=== PATIENT | female | born 1985 | race Caucasian/White ===

== ENCOUNTER 2019-01-31 11:06 | Emergency (ER) | payer SELFPAY ==
[2019-01-31 11:50] LABS: Absolute Lymphocytes (CBC) 2.5 K/uL (0.7-4.9); Absolute Monocytes 0.5 K/uL (0.1-1.3); Absolute Neutrophil 5.5 K/uL (1.8-8.0); Basophils % 0.8 % (0-1.3); Eosinophils % 4.3 % (0-4.4); Hematocrit 37.9 % (36.0-45.0); Lymphocytes % 28.1 % (15.3-44.8); MPV 7.6 fL (7.6-11.3); Monocytes % 5.2 % (3.3-12.3)
[2019-01-31] MEDS ORDERED: NA CHLORIDE 0.9% 1,000 ML ONE (11:52)
[2019-01-31 12:03] LABS: BUN Blood Urea Nitrogen 5 mg/dL (7-18); Bicarbonate 30 mmol/L (21-32); Glucose Level 97 mg/dL (74-106); Potassium 4.1 mmol/L (3.5-5.1); Sodium Level 142 mmol/L (136-145)
[2019-01-31 12:07] LABS: Urine Bacteria <20 /HPF (<20); Urine Culture Reflex Order NOT NEEDED; Urine RBC <5 /HPF (NONE SEEN)
--- NOTE | 2019-01-31 12:40 | RAD REPORT ---
EXAM DESCRIPTION: CT - Stone Protocol - 01/31/2019 12:24 pm CLINICAL HISTORY: Abdominal pain. Lower abdominal pain. Urinary frequency COMPARISON: None. TECHNIQUE: Computed axial tomography of the abdomen pelvis was obtained without oral or IV contrast. Lack of IV and oral contrast limits evaluation of solid organs, bowel, and vessels. Coronal reformat ari images were obtained and reviewed. All CT scans are performed using dose optimization technique as appropriate and may include automated exposure control or mA/KV adjustment according to patient size. FINDINGS: 8 millimeter left renal calculus Hounsfield unit 1667. No hydronephrosis. A right renal ca lculus is not seen. A ureteral calculus is not noted. A bladder calculus is not present. The liver, spleen, pancreas and adrenals appear grossly normal The gallbladder has been removed. Small umbilical hernia contains fat There is no evidence of diverticulitis. The appendix appears normal IMPRESSION: 8 millimeter nonobstructing left renal calculus
--- NOTE | 2019-01-31 13:02 | EDPHYS ---
Physician Documentation [facility] Name: Etelvina Whelan Age: 33 yrs Sex: Female : 1985 Arrival Date: 01/31/2019 Time: 11:07 Bed 13 Private MD: ED Physician Bernardo Mora HPI: 01/31 11:45 This 33 yrs old Female presents to ER via Ambulatory with complaints of kb Abdominal Pain. 11:45 The patient complains of pain in the left flank. The pain does not radiate. Onset: The kb symptoms/episode began/occurred 2 week(s) ago. Modifying factors: The symptoms are alleviated by nothing. the symptoms are aggravated by palpation/percussion. Associated signs and symptoms: Pertinent positives: dysuria, Pertinent negatives: diarrhea, dizziness, fever, urinary frequency, headache, hematuria, nausea, pain radiating to the lower extremities, vomiting. Severity of pain: At its worst the pain was moderate in the emergency department the pain is unchanged. The patient has not experienced similar symptoms in the past. The patient has been recently seen by a physician: the patient's primary care provider, 1 week(s) ago, with similar presenting complaints, and apparently given a diagnosis of UTI, lab tests were done. 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 - Social history:: Smoking status: Patient/guardian denies using tobacco. - Ebola Screening: : No symptoms or risks identified at this time. ROS: 11:43 Constitutional: Negative for fever, chills, and weight loss, Cardiovascular: Negative kb for chest pain, palpitations, and edema, Respiratory: Negative for shortness of breath, cough, wheezing, and pleuritic chest pain, Abdomen/GI: Negative for abdominal pain, nausea, vomiting, diarrhea, and constipation, Back: Negative for injury and pain, MS/Extremity: Negative for injury and deformity, Skin: Negative for injury, rash, and discoloration, Neuro: Negative for headache, weakness, numbness, tingling, and seizure. 11:43 : Positive for urinary symptoms, flank pain, burning with urination. Exam: 11:43 Constitutional: This is a well developed, well nourished patient who is awake, alert, kb and in no acute distress. Head/Face: Normocephalic, atraumatic. Chest/axilla: Normal chest wall appearance and motion. Nontender with no deformity. No lesions are appreciated. Cardiovascular: Regular rate and rhythm with a normal S1 and S2. No gallops, murmurs, or rubs. Normal PMI, no JVD. No pulse deficits. Respiratory: Lungs have equal breath sounds bilaterally, clear to auscultation and percussion. No rales, rhonchi or wheezes noted. No increased work of breathing, no retractions or nasal flaring. Abdomen/GI: Soft, non-tender, with normal bowel sounds. No distension or tympany. No guarding or rebound. No evidence of tenderness throughout. Skin: Warm, dry with normal turgor. Normal color with no rashes, no lesions, and no evidence of cellulitis. MS/ Extremity: Pulses equal, no cyanosis. Neurovascular intact. Full, normal range of motion. Neuro: Awake and alert, GCS 15, oriented to person, place, time, and situation. Cranial nerves II-XII grossly intact. Motor strength 5/5 in all extremities. Sensory grossly intact. Cerebellar exam normal. Normal gait. 11:43 Back: CVA tenderness, that is moderate, is noted on the left. Vital Signs: 11:19 BP 118 / 81; Pulse 86; Resp 16; Temp 98; Pulse Ox 100% on R/A; Pain 8/10; hb 12:19 BP 104 / 63; Pulse 80; Resp 17; Temp 98.4(O); Pulse Ox 98% on R/A; mh5 13:19 BP 105 / 62; Pulse 87; Resp 15; Pulse Ox 99% on R/A; rb1 MDM: 11:15 Patient medically screened. kb 11:44 Data reviewed: vital signs, nurses notes. Data interpreted: Pulse oximetry: on room air kb is 100 %. Interpretation: normal. 13:01 Counseling: I had a detailed discussion with the patient and/or guardian regarding: the kb historical points, exam findings, and any diagnostic results supporting the discharge/admit diagnosis, lab results, radiology results, the need for outpatient follow up, a family practitioner, a urologist, to return to the emergency department if symptoms worsen or persist or if there are any questions or concerns that arise at home. 01/31 11:23 Order name: Basic Metabolic Panel; Complete Time: 12:06 kb 01/31 11:23 Order name: CBC with Diff; Complete Time: 11:53 kb 01/31 11:23 Order name: Urine Microscopic Only; Complete Time: 12:09 kb 01/31 11:38 Order name: Urine Dipstick--Ancillary (enter results) eb 01/31 11:38 Order name: Urine --Ancillary (enter results) eb 01/31 12:07 Order name: CT Stone Protocol; Complete Time: 12:41 kb 01/31 11:23 Order name: IV Saline Lock; Complete Time: 12:29 kb 01/31 11:23 Order name: Labs collected and sent; Complete Time: 12:29 kb Administered Medications: 11:47 Drug: NS 0.9% 1000 ml Route: IV; Rate: 1000 ml; Site: right antecubital; rb1 13:32 Follow up: IV Status: Completed infusion rb1 13:01 Drug: TORadol 30 mg Route: IVP; Site: right antecubital; rb1 13:31 Follow up: Response: No adverse reaction; Pain is decreased rb1 Disposition: 14:30 Co-signature as Attending Physician, Bernardo Mora MD I agree with the assessment and kdr plan of care. Disposition: 01/31/19 13:01 Discharged to Home. Impression: Calculus of kidney. - Condition is Stable. - Discharge Instructions: Kidney Stones, [id number]. - Prescriptions for Diclofenac Sodium 75 mg Oral Tablet, Delayed Release (E.C.) - take 1 tablet by ORAL route 2 times per day As needed; 30 tablet. - Medication Reconciliation Form, Thank You Letter, Antibiotic Education, Prescription Opioid Use form. - Follow up: Emergency Department; When: As needed; Reason: Worsening of condition. Follow up: Private Physician; When: 2 - 3 days; Reason: Recheck today's complaints, Continuance of care, Re-evaluation by your physician. Follow up: Storm Wheat MD; When: 2 - 3 days; Reason: Recheck today's complaints. Signatures: Dispatcher [employer] EDTierra Bloom BOAT OUTFITTING SUPERVISOR-C BOAT OUTFITTING SUPERVISOR-Ckb Bernardo Mora MD MD kdr Leticia Escobar, RN RN rb1 Genet Raphael, RN RN Corrections: (The following items were deleted from the chart) 13:33 13:01 01/31/2019 13:01 Discharged to Home. Impression: Calculus of kidney. Condition is rb1 Stable. Forms are Medication Reconciliation Form, Thank You Letter, Antibiotic Education, Prescription Opioid Use. Follow up: Emergency Department; When: As needed; Reason: Worsening of condition. Follow up: Private Physician; When: 2 - 3 days; Reason: Recheck today's complaints, Continuance of care, Re-evaluation by your physician. Follow up: Storm Wheat; When: 2 - 3 days; Reason: Recheck today's complaints. kb
--- NOTE | 2019-01-31 13:02 | ER ---
Nurse's Notes [facility] Name: Etelvina Whelan Age: 33 yrs Sex: Female : 1985 Arrival Date: 01/31/2019 Time: 11:07 Bed 13 Private MD: Diagnosis: Calculus of kidney Presentation: 01/31 11:19 Presenting complaint: Patient states: Left flank pain x 2 weeks. Transition of care: hb patient was not received from another setting of care. Onset of symptoms was January 31, 2019. Risk Assessment: Do you want to hurt yourself or someone else? Patient reports no desire to harm self or others. Care prior to arrival: None. 11:19 Method Of Arrival: Ambulatory hb 11:19 Acuity: KSENIA 3 hb 11:20 Initial Sepsis Screen: Does the patient meet any 2 criteria? No. Patient's initial rb1 sepsis screen is negative. Does the patient have a suspected source of infection? No. Patient's initial sepsis screen is negative. 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 - Social history:: Smoking status: Patient/guardian denies using tobacco. - Ebola Screening: : No symptoms or risks identified at this time. Screenin:20 Abuse screen: Denies threats or abuse. Denies injuries from another. Nutritional hb screening: No deficits noted. Tuberculosis screening: No symptoms or risk factors identified. Fall Risk None identified. Assessment: 11:20 General: Appears in no apparent distress. comfortable, Behavior is calm, cooperative. rb1 General: Denies fever. Pain: Complains of pain in left flank Pain does not radiate. Pain currently is 8 out of 10 on a pain scale. Pain began x 2 weeks. Neuro: Level of Consciousness is awake, alert, obeys commands, Oriented to person, place, time, situation. Cardiovascular: Capillary refill < 3 seconds is brisk in bilateral fingers. Respiratory: Airway is patent Respiratory effort is even, unlabored, Respiratory pattern is regular, symmetrical. GI: Bowel sounds present X 4 quads. Abd is soft. : Reports burning with urination, Currently taking Cefuroxime for the burning. Derm: Skin is pink, warm \T\ dry. 12:20 Reassessment: Patient appears in no apparent distress at this time. No changes from rb1 previously documented assessment. 13:05 Reassessment: Discharge pending due to shot time. rb1 13:31 Reassessment: Patient appears in no apparent distress at this time. Patient and/or rb1 family updated on plan of care and expected duration. Pain level reassessed. Patient is alert, oriented x 3, equal unlabored respirations, skin warm/dry/pink. Vital Signs: 11:19 BP 118 / 81; Pulse 86; Resp 16; Temp 98; Pulse Ox 100% on R/A; Pain 8/10; hb 12:19 BP 104 / 63; Pulse 80; Resp 17; Temp 98.4(O); Pulse Ox 98% on R/A; mh5 13:19 BP 105 / 62; Pulse 87; Resp 15; Pulse Ox 99% on R/A; rb1 ED Course: 11:07 Patient arrived in ED. as 11:10 T[facility] Frey [facility]-C [facility] kb 11:10 Bernardo Mora MD is Attending Physician. kb 11:19 Triage completed. hb 11:20 Arm band placed on. hb 11:20 Patient has correct armband on for positive identification. Bed in low position. Call mh5 light in reach. Side rails up X 1. Adult w/ patient. Warm blanket given. Pulse ox on. NIBP on. 11:23 Leticia Escobar, KHARI is Primary Nurse. rb1 11:25 Inserted saline lock: 22 gauge in right antecubital area, using aseptic technique. rb1 Blood collected. 12:25 CT Stone Protocol In Process Unspecified. EDMS 13:01 Storm Wheat MD is Referral Physician. kb 13:32 No provider procedures requiring assistance completed. IV discontinued, intact, rb1 bleeding controlled, No redness/swelling at site. Pressure dressing applied. Administered Medications: 11:47 Drug: NS 0.9% 1000 ml Route: IV; Rate: 1000 ml; Site: right antecubital; rb1 13:32 Follow up: IV Status: Completed infusion rb1 13:01 Drug: TORadol 30 mg Route: IVP; Site: right antecubital; rb1 13:31 Follow up: Response: No adverse reaction; Pain is decreased rb1 Outcome: 13:01 Discharge ordered by MD. ferrer 13:32 Discharged to home ambulatory, with family. rb1 13:32 Condition: stable 13:32 Discharge instructions given to patient, Instructed on discharge instructions, follow up and referral plans. medication usage, Demonstrated understanding of instructions, follow-up care, medications, Prescriptions given X 1. 13:33 Patient left the ED. rb1 Signatures: Dispatcher [employer] EDMS Tierra Frey, DIRECTOR OF GOLF-C DONAVON-Kym Hair Rebecca, RN RN rb1 Genet Raphael, KHARI RN Denae Amaral [facility]
[2019-01-31] MEDS ORDERED: KETOROLAC 30 MG/ML INJ ONE (13:09)
[2019-01-31 13:45] LABS: Urine Blood TRACE (NEG); Urine Glucose NEGATIVE (NEG); Urine Protein NEGATIVE (NEG)
== END 2019-01-31 13:33 | disposition home or self-care (01) ==
LOC: ER 11:06
DX: N20.0 Calculus of kidney (principal); Z91.012 Allergy to eggs
CPT/HCPCS: 36415; 74176; 76377; 80048; 81003; 81015; 81025; 85025; 96361; 96374; 99284; J7030

== ENCOUNTER 2019-02-05 08:58 | Day surgery (SDC) | payer SELFPAY ==
[2019-02-04 13:44] LABS: Urine Appearance CLEAR; Urine Bilirubin NEGATIVE (NEG); Urine Blood NEGATIVE (NEG); Urine Color YELLOW; Urine Glucose NEGATIVE (NEG); Urine Microscopic Reflex NO UMIC; Urine Protein NEGATIVE (NEG); Urine Specific Gravity 1.015 (1.005-1.030); Urine Urobilinogen 0.2 mg/dL (0.2-1.0)
[2019-02-04 13:48] LABS: Absolute Lymphocytes (CBC) 2.2 K/uL (0.7-4.9); Absolute Monocytes 0.5 K/uL (0.1-1.3); Basophils % 0.6 % (0-1.3); Eosinophils % 2.4 % (0-4.4); Hematocrit 36.8 % (36.0-45.0); Lymphocytes % 21.8 % (15.3-44.8); MPV 7.6 fL (7.6-11.3); Monocytes % 4.9 % (3.3-12.3); RBC Red Blood Cell Count 3.98 M/uL (3.86-4.86)
[2019-02-04 13:54] LABS: Protime INR 1.05
[2019-02-04 13:58] LABS: BUN Blood Urea Nitrogen 11 mg/dL (7-18); Bicarbonate 30 mmol/L (21-32); Glucose Level 92 mg/dL (74-106); Phosphorus 2.7 mg/dL (2.5-4.9); Potassium 4.2 mmol/L (3.5-5.1); Sodium Level 139 mmol/L (136-145)
--- NOTE | 2019-02-04 14:32 | RAD REPORT ---
EXAM DESCRIPTION: Wesley Simental (2 Views)02/04/2019 2:24 pm CLINICAL HISTORY: Preop/abdominal pain COMPARISON: 2016 FINDINGS: The lungs appear clear of acute infiltrate. The heart is normal size IMPRESSION: No acute abnormalities displayed
--- NOTE | 2019-02-04 14:33 | RAD REPORT ---
EXAM DESCRIPTION: RAD - Abdomen 1 View (KUB) - 02/04/2019 2:25 pm CLINICAL HISTORY: N20.0,N20.1,Z01.818. FINDINGS: The bowel gas pattern is unremarkable. 8 millimeter left renal calculus unchanged from the recent CAT scan
[2019-02-05] MEDS ORDERED: GENTAMICIN 80 MG/100 ML BAG 80 MG/100 ML BAG IV ONE (09:39)
[2019-02-05] MEDS ORDERED: Ringers Lactate 1,000 ML IV ONE (09:39)
[2019-02-05] MEDS ORDERED: PROPOFOL 200 MG/20 ML VIAL IV ONE ×2 (11:10→11:23)
[2019-02-05] MEDS ORDERED: FENTANYL CITR 100 MCG/2 ML ONE (11:10)
[2019-02-05] MEDS ORDERED: ONDANSETRON 4 MG/2 ML VIAL ONE (11:10)
[2019-02-05] MEDS ORDERED: LIDOCAINE 1% MPF 5 ML VIAL ONE (11:10)
[2019-02-05] MEDS ORDERED: MIDAZOLAM HCL 2 MG/2 ML INJ ONE (11:10)
[2019-02-05] MEDS ORDERED: MEPERIDINE HCL 50 MG/ML AMP ONE (11:56)
== END 2019-02-05 13:31 | disposition home or self-care (01) ==
LOC: OR 08:58
PROVIDERS: ATTEND Urology
PROC: 0TF4XZZ Fragmentation in Left Kidney Pelvis, External Approach (ICD-10-PCS; principal; 2019-02-05 10:45)
DX: N20.0 Calculus of kidney (principal); F31.9 Bipolar disorder, unspecified; F41.9 Anxiety disorder, unspecified; F17.210 Nicotine dependence, cigarettes, uncomplicated; Z79.899 Other long term (current) drug therapy
CPT/HCPCS: 36415; 50590; 71046; 74018; 80048; 81003; 84100; 84703; 85025; 85610; 85730; 87086; 87088; 93005; J1580; J2175; J2250; J2405; J2704; J3010

== ENCOUNTER 2022-05-31 07:43 | Emergency (ER) | payer SELFPAY ==
--- OUTSIDE RECORDS SUMMARY | 2022-05-31 07:45 | XMS REPORT | Continuity of Care Document ---
:1985 Author Organization [facility] t Address [address] [place] [address] [address] [place] [address] Care Team Providers Name Role Phone Sean GOFF Attending Clinician Unavailable AURY SINGH Attending Clinician Unavailable Vaccine, [facility] Attending Clinician Unavailable Samantha FRIED, Aury Jamil Attending Clinician [phone] Problems This patient has no known problems. Allergies, Adverse Reactions, Alerts Allergy Allergy Status Severity Reaction(s) Onset Inactive Treating Comm ents Source Name Type Date Date Clinician NO KNOWN Drug Active Univers ALLERGIE Class ity of S [facility] Social History Social Habit Start Date Stop Date Quantity Comments Source Exposure to Unable to assess Univers ity of SARS-CoV-2 [facility] [place] Sex Assigned At [birth year] Universit y of 00:00:00 00:00:00 [facility] Smoking Status Start Date Stop Date Source Unknown if ever smoked [facility] Medications This patient has no known medications. Immunizations Ordered Filled Immunization Date Status Comments Sourc e Immunization Name Name SARS-COV-2 COVID-19 2021-05-21 Completed Unive rsity of PFIZER VACCINE 00:00:00 [facility] Procedures Procedure Date / Time Performed Performing Clinician Sourc e SARS-COV-2 COVID-19 2021-05-21 19:12:42 Madeline Singh Unive rsity of [place] VACCINE,0.3ML,IM Aury Omero [facility] (PFIZER) Encounters Start End Encounter Admission Attending Care Care Encounter Source Date/Time Date/Time Type Type Clinicians Facility Department ID 2021-06-11 2021-06-11 Outpatient R [facility] [id number] Univers 09:10:00 09:10:00 [id number] ity of [facility] 2021-06-11 2021-06-11 Outpatient R IRMA [facility] [id number] Univers 09:10:00 09:10:00 cris [facility] 2021-05-21 2021-05-21 Outpatient R SAMANTHA [facility] [id number] [facility] 11:40:00 11:40:00 MADELINE itloree [facility] 2021-05-21 2021-05-21 Imm/Inj Vaccine, [facility] [id number] Univers 11:04:45 11:14:45 Visit Madeline Singh [id number] [id number] [id number] [place] [address] Branch Results This patient has no known results.
[2022-05-31 08:55] LABS: Absolute Lymphocytes (CBC) 2.9 K/uL (0.7-4.9); Hematocrit 38.5 % (36.0-45.0); Lymphocytes % 29.8 % (15.3-44.8); MCV 86.4 fL (80-100); MPV 7.4 fL (7.6-11.3); RBC Red Blood Cell Count 4.46 M/uL (3.86-4.86)
[2022-05-31 09:17] LABS: Albumin 3.8 g/dL (3.4-5.0); Bilirubin Total 0.3 mg/dL (0.2-1.0); Potassium 3.7 mmol/L (3.5-5.1); Protein, Total 7.8 g/dL (6.4-8.2)
--- NOTE | 2022-05-31 09:55 | RAD REPORT ---
EXAM DESCRIPTION: CTAbdomen Pelvis W Contrast - 05/31/2022 9:34 am CLINICAL HISTORY: Abdominal pain. Abdominal pain, acute, nonlocalized, neutropenic COMPARISON: No comparisons TECHNIQUE: Biphasic CT imaging of the abdomen and pelvis was performed with 100 ml non-ionic IV cont rast. All CT scans are performed using dose optimization technique as appropriate and may include automated exposure control or mA/KV adjustment according to patient size. FINDINGS: Trace bilateral pleural effusions.Cholecystectomy clips. The liver, spleen, pancreas, adrenal glands and right kidney are within normal limits. Left renal allen culi are present without hydronephrosis. No bowel obstruction, free air, free fluid or abscess. There is mucosal thickening involving the colo n present probably representing a colitis. No pneumatosis coli. The appendix is normal. No evidence of significant lymphadenopathy. Small fat containing umbilical hernia. No suspicious bony findings. IMPRESSION: There is a colitis pattern present, mild to moderate in severity. This is nonspecific bu t does not appear related to ischemia. Ulcerative colitis or infectious colitis are favored. Left nephrolithiasis without hydronephrosis. Trace bilateral pleural effusions.
--- NOTE | 2022-05-31 10:24 | ER ---
Nurse's Notes [facility] Name: Etelvina Whelan Age: 36 yrs Sex: Female : 1985 Arrival Date: 05/31/2022 Time: 07:45 Bed 22 Private MD: Edwardo Prather E Diagnosis: Acute Colitis Presentation: 05/31 08:20 Chief complaint: Patient states: N/V/D, lower abdominal cramping, blood in stool x 2 jl7 weeks. Coronavirus screen: At this time, the client does not indicate any symptoms associated with coronavirus-19. Ebola Screen: No symptoms or risks identified at this time. Initial Sepsis Screen: Does the patient meet any 2 criteria? No. Patient's initial sepsis screen is negative. Does the patient have a suspected source of infection? No. Patient's initial sepsis screen is negative. Risk Assessment: Do you want to hurt yourself or someone else? Patient reports no desire to harm self or others. Onset of symptoms was May 17, 2022. 08:20 Method Of Arrival: Ambulatory jl7 08:20 Acuity: KSENIA 3 jl7 Triage Assessment: 08:21 General: Appears in no apparent distress. uncomfortable, Behavior is calm, cooperative, jl7 appropriate for age. Pain: Complains of pain in right lower quadrant and left lower quadrant Pain currently is 8 out of 10 on a pain scale. Quality of pain is described as crampy, Pain began x 2 weeks Is continuous. GI: Abdomen is round Stools are reported to be diarrhea. Last BM was May 30, 2022. Reports diarrhea, bloody stool, nausea, vomiting. Derm: Skin is pink, warm \T\ dry. 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 - Social history:: Smoking status: Reported history of juuling and/or vaping. Patient uses street drugs, marijuana. Screenin:15 Abuse screen: Denies threats or abuse. Nutritional screening: No deficits noted. ha1 Tuberculosis screening: No symptoms or risk factors identified. 10:15 Fall Risk None identified. ha1 Vital Signs: 08:20 BP 111 / 72; Pulse 93; Resp 17; Temp 98.1; Pulse Ox 98% on R/A; Weight 85.28 kg; Height jl7 4 ft. 11 in. (149.86 cm); Pain 8/10; 11:35 BP 114 / 75; Pulse 90; Resp 16 S; Pulse Ox 98% on R/A; ha1 08:20 Body Mass Index 37.97 (85.28 kg, 149.86 cm) jl7 ED Course: 07:45 Patient arrived in ED. mr 07:45 Edwardo Prather MD is Private Physician. mr 08:08 [facility]eman [facility]. jr8 08:08 Kedar Scherer MD is Attending Physician. jr8 08:21 Triage completed. jl7 08:21 Arm band placed on right wrist. Patient placed in waiting room, Patient notified of jl7 wait time. 09:35 Abdomen In Process Unspecified. EDMS 10:15 Patient has correct armband on for positive identification. Bed in low position. Call ha1 light in reach. Side rails up X 1. 10:19 Shar Cole, KHARI is Primary Nurse. jl7 10:22 Edwardo Garcia MD is Referral Physician. jr8 11:35 IV discontinued, intact, bleeding controlled, No redness/swelling at site. Pressure ha1 dressing applied. 11:40 No provider procedures requiring assistance completed. ha1 Administered Medications: 10:49 Drug: Cipro (ciprofloxacin) 500 mg Route: PO; em6 11:25 Follow up: Response: No adverse reaction ha1 10:49 Drug: metroNIDAZOLE 500 mg Route: PO; em6 11:25 Follow up: Response: No adverse reaction ha1 10:49 Drug: Ondansetron 4 mg Route: PO; em6 11:25 Follow up: Response: No adverse reaction; Nausea is decreased ha1 10:49 Drug: Dicyclomine 20 mg Route: PO; em6 11:25 Follow up: Response: No adverse reaction; Pain is decreased ha1 Medication: 11:40 VIS not applicable for this client. ha1 Outcome: 10:23 Discharge ordered by MD. stewart 11:40 Discharged to home ambulatory, with significant other. ha1 11:40 Condition: improved 11:40 Discharge instructions given to patient, Instructed on discharge instructions, follow up and referral plans. Demonstrated understanding of instructions, medications, Prescriptions given X 4. 12:03 Patient left the ED. jl7 Signatures: Dispatcher [employer] EDDC Monique Hooker, DIAZ Geiger jr8 Shar Cole RN RN jl7 Frances Tejeda RN RN ha1 Stephie Amaral RN RN em6 Corrections: (The following items were deleted from the chart) 11:50 11:47 Condition: improved ha1 ha1 11:50 11:47 Discharged to home ambulatory, with significant other, ha1 ha1 11:50 11:47 Discharge instructions given to patient, Instructed on discharge instructions, ha1 follow up and referral plans. Demonstrated understanding of instructions, medications, Prescriptions given X 4, ha1
--- NOTE | 2022-05-31 10:24 | EDPHYS ---
Physician Documentation [facility] Name: Etelvina Whelan Age: 36 yrs Sex: Female : 1985 Arrival Date: 05/31/2022 Time: 07:45 Bed 22 Private MD: Edwardo Prather E ED Physician Kedar Scherer HPI: 05/31 08:50 This 36 yrs old Female presents to ER via Ambulatory with complaints of Abdominal Pain, jr8 Vomiting/Diarrhea, Bloody Stools, Weakness. 08:50 The patient presents with abdominal pain in the lower abdomen. Onset: The jr8 symptoms/episode began/occurred gradually, 2 week(s) ago. The symptoms do not radiate. Associated signs and symptoms: Pertinent positives: diarrhea, nausea, hematochezia . The symptoms are described as crampy. Modifying factors: The symptoms are alleviated by nothing, the symptoms are aggravated by nothing. Severity of pain: At its worst the pain was moderate in the emergency department the pain is unchanged. The patient has not experienced similar symptoms in the past. The patient has not recently seen a physician. 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 - Social history:: Smoking status: Reported history of juuling and/or vaping. Patient uses street drugs, marijuana. ROS: 08:50 Eyes: Negative for injury, pain, redness, and discharge, ENT: Negative for injury, jr8 pain, and discharge, Neck: Negative for injury, pain, and swelling, Cardiovascular: Negative for chest pain, palpitations, and edema, Respiratory: Negative for shortness of breath, cough, wheezing, and pleuritic chest pain, Back: Negative for injury and pain, MS/Extremity: Negative for injury and deformity, Skin: Negative for injury, rash, and discoloration, Neuro: Negative for headache, weakness, numbness, tingling, and seizure. 08:50 Abdomen/GI: Positive for nausea, diarrhea, abdominal cramps, rectal bleeding. Exam: 08:50 Constitutional: This is a well developed, well nourished patient who is awake, alert, jr8 and in no acute distress. Cardiovascular: Regular rate and rhythm with a normal S1 and S2. No gallops, murmurs, or rubs. Normal PMI, no JVD. No pulse deficits. Respiratory: Lungs have equal breath sounds bilaterally, clear to auscultation and percussion. No rales, rhonchi or wheezes noted. No increased work of breathing, no retractions or nasal flaring. Back: No spinal tenderness. No costovertebral tenderness. Full range of motion. Skin: Warm, dry with normal turgor. Normal color with no rashes, no lesions, and no evidence of cellulitis. MS/ Extremity: Pulses equal, no cyanosis. Neurovascular intact. Full, normal range of motion. Neuro: Awake and alert, GCS 15, oriented to person, place, time, and situation. Cranial nerves II-XII grossly intact. Motor strength 5/5 in all extremities. Sensory grossly intact. Cerebellar exam normal. Normal gait. 08:50 Abdomen/GI: Inspection: obese Bowel sounds: active, all quadrants, Palpation: soft, in all quadrants, moderate abdominal tenderness, in the right lower quadrant and left lower quadrant, mass, is not appreciated, rebound tenderness, is not appreciated, voluntary guarding, is not appreciated, involuntary guarding, is not appreciated, no appreciated organomegaly, Indicators: McBurney's point is not tender, Merchant's sign is negative, Liver: tenderness, is not appreciated. Vital Signs: 08:20 BP 111 / 72; Pulse 93; Resp 17; Temp 98.1; Pulse Ox 98% on R/A; Weight 85.28 kg; Height jl7 4 ft. 11 in. (149.86 cm); Pain 8/10; 11:35 BP 114 / 75; Pulse 90; Resp 16 S; Pulse Ox 98% on R/A; ha1 08:20 Body Mass Index 37.97 (85.28 kg, 149.86 cm) 7 MDM: 08:53 Patient medically screened. jr8 10:20 Data reviewed: vital signs, nurses notes, lab test result(s), radiologic studies, CT jr8 scan. Data interpreted: Pulse oximetry: on room air is 98 %. Interpretation: normal. Counseling: I had a detailed discussion with the patient and/or guardian regarding: the historical points, exam findings, and any diagnostic results supporting the discharge/admit diagnosis, lab results, radiology results, the need for outpatient follow up, a c web developer, to return to the emergency department if symptoms worsen or persist or if there are any questions or concerns that arise at home. ED course: Patient hemodynamically stable and afebrile. Discussed labs with her. No acute findings on labs although the CT scan of the patient does show infectious versus inflammatory colitis. We will treat with Flagyl, Cipro, pain medicine, nausea medicine and then after the inflammation goes down will need to follow-up with Dr. Garcia her c web developer for colonoscopy for definitive diagnosis. Patient good with this and knows to come back if at any point in time if she worsens.. 05/31 08:34 Order name: CBC with Diff; Complete Time: 08:58 jl7 05/31 08:34 Order name: CMP; Complete Time: 09:18 jl7 05/31 08:34 Order name: Lipase; Complete Time: 09:18 jl7 05/31 09:22 Order name: Abdomen ; Complete Time: 10:10 EDMS 05/31 08:34 Order name: IV Saline Lock; Complete Time: 08:34 jl7 05/31 08:34 Order name: Labs collected and sent; Complete Time: 08:34 jl7 Administered Medications: 10:49 Drug: Cipro (ciprofloxacin) 500 mg Route: PO; em6 11:25 Follow up: Response: No adverse reaction ha1 10:49 Drug: metroNIDAZOLE 500 mg Route: PO; em6 11:25 Follow up: Response: No adverse reaction ha1 10:49 Drug: Ondansetron 4 mg Route: PO; em6 11:25 Follow up: Response: No adverse reaction; Nausea is decreased ha1 10:49 Drug: Dicyclomine 20 mg Route: PO; em6 11:25 Follow up: Response: No adverse reaction; Pain is decreased ha1 Disposition Summary: 05/31/22 10:23 Discharge Ordered Location: Home jr8 Problem: new jr8 Symptoms: have improved jr8 Condition: Stable jr8 Diagnosis - Acute Colitis jr8 Followup: jr8 - With: Edwardo Garcia MD - When: 10 - 14 days - Reason: Recheck today's complaints, Continuance of care, Re-evaluation by your physician Discharge Instructions: - Discharge Summary Sheet jr8 - Colitis jr8 Forms: - Medication Reconciliation Form jr8 - Thank You Letter jr8 - Antibiotic Education jr8 - Prescription Opioid Use jr8 Prescriptions: - ondansetron 4 mg Oral tablet,disintegrating - place 1 tablet by TRANSLINGUAL route every 8 hours As needed; 16 tablet; jr8 Refills: 0, Product Selection Permitted - Cipro 500 mg Oral Tablet - take 1 tablet by ORAL route every 12 hours for 10 days; 20 tablet; Refills: 0, jr8 Product Selection Permitted - Flagyl 500 mg Oral Tablet - take 1 tablet by ORAL route every 6 hours for 10 days; 40 tablet; Refills: 0, jr8 Product Selection Permitted - dicyclomine 20 mg Oral Tablet - take 1 tablet by ORAL route 4 times per day As needed; 32 tablet; Refills: 0, jr8 Product Selection Permitted Signatures: 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 EDMS EDMS
[2022-05-31] MEDS ORDERED: DICYCLOMINE HCL 10 MG CAP ONE (10:49)
[2022-05-31] MEDS ORDERED: CIPROFLOXACIN HCL 500 MG TAB ONE (10:49)
[2022-05-31] MEDS ORDERED: ONDANSETRON 4 MG (ODT) TAB ONE (10:50)
[2022-05-31] MEDS ORDERED: metroNIDAZOLE 500 MG TABLET ONE (10:52)
[2022-05-31 12:21] VITALS: TEMP 98.1; O2SAT 98
[2022-05-31 12:23] VITALS: BP 114/75
== END 2022-05-31 12:03 | disposition home or self-care (01) ==
LOC: ER 07:43
DX: K52.9 Noninfective gastroenteritis and colitis, unspecified (principal); F20.9 Schizophrenia, unspecified; Z91.012 Allergy to eggs; Z91.018 Allergy to other foods
CPT/HCPCS: 36415; 74177; 80053; 83690; 85025; 99283; Q0162; Q9967

== ENCOUNTER 2023-07-18 11:27 | Emergency (ER) | payer OTHER ==
--- OUTSIDE RECORDS SUMMARY | 2023-07-18 11:31 | XMS REPORT | Continuity of Care Document ---
:1985 Author Organization [facility] t Address [address] [place] [address] [place] [id number] Care Team Providers Name Role Phone NOEMY HENRY Primary Care Physician Unavailable Tania Somers Attending Clinician Unavailable CANDI STANFORD Attending Clinician Unavailable NOEMY HENRY Attending Clinician Unavailable JUSTIN ROMERO Attending Clinician Unavailable JUSTIN ROMERO Attending Clinician Unavailable ETELVINA SONG Attending Clinician Unavailable Candi Stanford MD Attending Clinician Nayely Dolan Attending Clinician NAYELY BLOOM Attending Clinician Unavailable Noemy Henry MD Attending Clinician 2, [facility] Attending Clinician Unavailable Loco Quintero MD Attending Clinician LOCO QUINTERO Attending Clinician Unavailable Doctor Unassigned, [place] Attending Clinician Unavailable GLEN VILLANUEVA Attending Clinician Unavailable Glen Ojeda Attending Clinician JASON BRIONES Attending Clinician Unavailable Jason Briones MD Attending Clinician Lab, Ang - Db Attending Clinician Unavailable GERMAINE GOFF Attending Clinician Unavailable FLAQUITO SINGH Attending Clinician Unavailab le Vaccine, [facility] Attending Clinician Unavailable Flaquito Singh MD Attending Clinician [phone] ETELVINA SONG Admitting Clinician Unavailable Payers Payer Name Policy Type Policy Number Effective Date Expiration Date Ed palma [facility] [id number] 2023 CHOICE [place] STAR 00:00:00 Problems Condition Condition Condition Status Onset Resolution Last Treating Co mments Source Name Details Category Date Date Treatment Clinician Date ADHD ADHD Disease Active Univers (attention (attention 06-06 it y of deficit deficit 00:00: [place] hyperactiv hyperactiv 00 Me dical ity ity Branch disorder) disorder) Allergic Allergic Disease Active Unive rs rhinitis rhinitis 06-06 ity of 00:00: [place] [facility] Anemia Anemia Disease Active Univers 06-06 ity of 00:00: Medical Branch Anxiety Anxiety Disease Active Univers 06-06 ity of 00:00: Medical Branch Arthritis Arthritis Disease Active Uni vers 06-06 ity of 00:00: Medical Branch Depression Depression Disease Active U nivers 06-06 ity of 00:00: Medical Branch GERD GERD Disease Active Univers without without 06-06 ity of esophagiti esophagiti 00:[place] [facility] [place] Acquired Acquired Disease Active Unive rs hypothyroi hypothyroi 06-06 it y of dism dism 00:00: Medical Branch Depression Depression Disease Active U nivers , major, , major, 06-06 ity of recurrent, recurrent, 00:00: [place] moderate moderate 00 Medica l Branch 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 06-06 ity of panic panic 00:00: [place] attacks attacks Medical Branch Schizophre Schizophre Disease Active U nivers chani, chani, 06-06 ity of schizo-aff schizo-aff 00:00: [place] ective ective Medical [place] Bipolar 1 Bipolar 1 Disease Active Uni vers disorder, disorder, 06-06 ity of manic, manic, 00:00: [place] full full 00 Medical remission remission Bran ch Abnormal Abnormal Disease Active Unive rs anal anal 06-06 ity of Papanicola Papanicola 00:00[place] ou smear ou smear 00 Medica l Branch Left renal Left renal Disease Active U nivers stone stone 06-06 ity of 00:00: [place] [facility] Arthritis Arthritis Disease Active Uni vers of left of left 06-06 ity of knee knee 00:00: [place] [facility] Chronic Chronic Disease Active Univers iron iron 06-06 ity of deficiency deficiency 00:00[place] anemia anemia [facility] Branch Chronic Chronic Disease Active Univers migraine migraine 06-06 ity of with aura with aura 00:00[place] Cannabis Cannabis Disease Active Unive rs dependence dependence 06-06 it y of 00:00: [place] [facility] Pap smear Pap smear Disease Active Uni vers abnormalit abnormalit 06-06 it y of y of y of 00:00: [place] cervix/hum cervix/hum 00 Me dical an an Branch papillomav papillomav irus (HPV) irus (HPV) positive positive Orthostati Orthostati Disease Active U nivers c c 06-06 ity of hypotensio hypotensio 00:[place] [facility] Allergies, Adverse Reactions, Alerts Allergy Allergy Status Severity Reaction(s) Onset Inactive Treating Comm ents Source Name Type Date Date Clinician EGG DRUG Active SOB Univers INGREDI 405 ity of 00:00: [place] [facility] Egg Propensi Active Swelling Univer s ty to 405 ity of adverse 00:00: [place] reaction [facility] s [place] NO KNOWN Drug Active Univers ALLERGIE Class ity of S [facility] Social History Social Habit Start Date Stop Date Quantity Comments Source Gender identity Universit y of [facility] Sexual orientation Univer sity of [facility] Alcohol intake 2023-06-23 2023-06-23 Lifetime University of 00:00:00 00:00:00 non-drinker [facility] (finding) Branch Exposure to 2023-03-18 2023-03-28 Not sure University of SARS-CoV-2 (event) 00:00:00 15:38:00 [facility] History of Social 2023-02-08 2023-02-08 Univers ity of function 00:00:00 00:00:00 [facility] Tobacco use and 2023-02-08 2023-02-08 Smokeless Universit y of exposure 00:00:00 00:00:00 tobacco non-user [facility] Sex Ass[birth year] At [birth year] Universit y of 00:00:00 00:00:00 [facility] Smoking Status Start Date Stop Date Source Tobacco smoking consumption Univ [facility] Branch Never smoked tobacco [facility] Medications Ordered Filled Start Stop Current Ordering Indication Dosage Frequency Signature Comments Components Source Medication Medication Date Date Medication? Clinician (SIG) Name Name stanao Yes [id number] 1mL inject 1 Univers oe (AIMOVIG 8-21 mL under ity of AUTOINJECTO 00:00: [place] 70 mg/mL 00 once every Me dical AtIn month. Anabel erenumab-ao Yes [id number] 1mL inject 1 Univers oe (AIMOVIG 8-21 mL under ity of AUTOINJECTO 00:00: [place] R) 70 mg/mL 00 once every Me dical AtIn month. Anabel erenumab-ao Yes [id number] 1mL inject 1 Univers oe (AIMOVIG 8-21 mL under ity of AUTOINJECTO 00:00: [place] R) 70 mg/mL 00 once every Me dical AtIn month. Anabel erenumab-ao Yes [id number] 1mL inject 1 Univers oe (AIMOVIG 8-21 mL under ity of AUTOINJECTO 00:00: [place] R) 70 mg/mL 00 once every Me dical AtIn month. Anabel erenumab-ao Yes [id number] 1mL inject 1 Univers oe (AIMOVIG 8-21 mL under ity of AUTOINJECTO 00:00: [place]) 70 mg/mL 00 once every Me dical AtIn month. Anabel erenumab-ao Yes [id number] 1mL inject 1 Univers oe (AIMOVIG 8-21 mL under ity of AUTOINJECTO 00:00: [place] R) 70 mg/mL 00 once every Me dical AtIn month. Anabel sulfur 2022- No [id number] 5mL 5 mL, Unive rs hexafluorid 8-18 08-18 Intravenou i ty of e microsphr 19:15: 19:16 s, ONCE, 1 [place] (LUMASON) 00 :00 dose, On Medica l injection 5 Fri Branch mL 06/23/23 at 1415, Routine
faculty member approving Restricted medication : WING DEE atogepant Yes [id number] 1{tbl} Take 1 U nivers (QULIPTA) 8-18 tablet by ity o f 30 mg Tab 00:00: [place] the [place] morning. Branch sumatriptan Yes [id number] 100mg Take 1 Univers 100 mg 8-18 tablet by ity of tablet 00:00: mouth as [place] 00 needed for Medical Migraine Branch (Max of 2 tablets/da y.). atogepant Yes [id number] 1{tbl} Take 1 U nivers (QULIPTA) 8-18 tablet by ity o f 30 mg Tab 00:00: [place] morning. Branch sumatriptan Yes [id number] 100mg Take 1 Univers 100 mg 8-18 tablet by ity of tablet 00:00: mouth as [place] 00 needed for Medical Migraine Branch (Max of 2 tablets/da y.). atogepant 2022-0 Yes [id number] 1{tbl} Take 1 U nivers (QULIPTA) 8-18 tablet by ity o f 30 mg Tab 00:00: [place] the [place] morning. Branch sumatriptan 0 Yes [id number] 100mg Take 1 Univers 100 mg 8-18 tablet by ity of tablet 00:00: mouth as [place] 00 needed for Medical Migraine Branch (Max of 2 tablets/da y.). atogepant 2022-0 Yes [id number] 1{tbl} Take 1 U nivers (QULIPTA) 8-18 tablet by ity o f 30 mg Tab 00:00: [place] the [place] morning. Branch sumatriptan 0 Yes [id number] 100mg Take 1 Univers 100 mg 8-18 tablet by ity of tablet 00:00: mouth as [place] 00 needed for Medical Migraine Branch (Max of 2 tablets/da y.). atogepant 2022-0 Yes [id number] 1{tbl} Take 1 U nivers (QULIPTA) 8-18 tablet by ity o f 30 mg Tab 00:00: [place] the Medical morning. Branch sumatriptan 2022-0 Yes [id number] 100mg Take 1 Univers 100 mg 8-18 tablet by ity of tablet 00:00: mouth as [place] 00 needed for Medical Migraine Branch (Max of 2 tablets/da y.). sumatriptan 2022-0 Yes [id number] 100mg Take 1 Univers 100 mg 8-18 tablet by ity of tablet 00:00: mouth as [place] 00 needed for Medical Migraine Branch (Max of 2 tablets/da y.). sumatriptan 2022-0 Yes [id number] 100mg Take 1 Univers 100 mg 8-18 tablet by ity of tablet 00:00: mouth as [place] 00 needed for Medical Migraine Branch (Max of 2 tablets/da y.). sumatriptan 2022-0 Yes [id number] 100mg Take 1 Univers 100 mg 8-18 tablet by ity of tablet 00:00: mouth as [place] 00 needed for Medical Migraine Branch (Max of 2 tablets/da y.). sumatriptan 2022-0 Yes [id number] 100mg Take 1 Univers 100 mg 8-18 tablet by ity of tablet 00:00: mouth as [place] 00 needed for Medical Migraine Branch (Max of 2 tablets/da y.). sumatriptan 2022-0 Yes [id number] 100mg Take 1 Univers 100 mg 8-18 tablet by ity of tablet 00:00: mouth as [place] 00 needed for Medical Migraine Branch (Max of 2 tablets/da y.). sumatriptan 2022-0 Yes [id number] 100mg Take 1 Univers 100 mg 8-18 tablet by ity of tablet 00:00: mouth as [place] 00 needed for Medical Migraine Branch (Max of 2 tablets/da y.). atogepant 2022-0 2022- No [id number] 1{tbl} Take 1 Univers (QULIPTA) 8-18 08-21 tablet by ity of 30 mg Tab 00:00: 00:00 mouth in [place] 00 :00 the Medical morning. Branch atogepant 2022-0 2022- No [id number] 1{tbl} Take 1 Univers (QULIPTA) 8-18 08-21 tablet by ity of 30 mg Tab 00:00: 00:00 mouth in [place] 00 :00 the Medical morning. Branch ferrous 2022-0 Yes [id number] 325mg Take 1 Uni vers sulfate 8-02 tablet by ity of (IRON) 325 00:00: mouth [place] mg (65 mg 00 the Medical iron) morning Branch tablet and 1 tablet at noon and 1 tablet in the evening. Take with meals. ascorbic 2022-0 Yes [id number] 500mg Take 1 Un ryan acid, 8-02 tablet by ity of vitamin C, 00:00: mouth [place] (VITAMIN C) 00 the Medical 500 mg morning. Branch tablet ferrous 2022-0 Yes [id number] 325mg Take 1 Uni vers sulfate 8-02 tablet by ity of (IRON) 325 00:00: mouth [place] mg (65 mg 00 the Medical iron) morning Branch tablet and 1 tablet at noon and 1 tablet in the evening. Take with meals. ascorbic 2022-0 Yes [id number] 500mg Take 1 Un ryan acid, 8-02 tablet by ity of vitamin C, 00:00: mouth [place] (VITAMIN C) 00 the Medical 500 mg morning. Branch tablet ferrous 2022-0 Yes [id number] 325mg Take 1 Uni vers sulfate 8-02 tablet by ity of (IRON) 325 00:00: mouth [place] mg (65 mg 00 the Medical iron) morning Branch tablet and 1 tablet at noon and 1 tablet in the evening. Take with meals. ascorbic 3-0 Yes [id number] 500mg Take 1 Un ryan acid, 8-02 tablet by ity of vitamin C, 00:00: mouth [place] (VITAMIN C) 00 the Medical 500 mg morning. Branch tablet ferrous 3-0 Yes [id number] 325mg Take 1 Uni vers sulfate 8-02 tablet by ity of (IRON) 325 00:00: mouth [place] mg (65 mg 00 the Medical iron) morning Branch tablet and 1 tablet at noon and 1 tablet in the evening. Take with meals. ascorbic 3-0 Yes [id number] 500mg Take 1 Un ryan acid, 8-02 tablet by ity of vitamin C, 00:00: mouth [place] (VITAMIN C) 00 the Medical 500 mg morning. Branch tablet ferrous 2022-0 Yes [id number] 325mg Take 1 Uni vers sulfate 8-02 tablet by ity of (IRON) 325 00:00: mouth [place] mg (65 mg 00 the Medical iron) morning Branch tablet and 1 tablet at noon and 1 tablet in the evening. Take with meals. ascorbic 2022-0 Yes [id number] 500mg Take 1 Un ryan acid, 8-02 tablet by ity of vitamin C, 00:00: mouth [place] (VITAMIN C) 00 the Medical 500 mg morning. Branch tablet ferrous 2022-0 Yes [id number] 325mg Take 1 Uni vers sulfate 8-02 tablet by ity of (IRON) 325 00:00: mouth [place] mg (65 mg 00 the Medical iron) morning Branch tablet and 1 tablet at noon and 1 tablet in the evening. Take with meals. ascorbic 2022-0 Yes [id number] 500mg Take 1 Un ryan acid, 8-02 tablet by ity of vitamin C, 00:00: mouth [place] (VITAMIN C) 00 the Medical 500 mg morning. Branch tablet ferrous 2022-0 Yes [id number] 325mg Take 1 Uni vers sulfate 8-02 tablet by ity of (IRON) 325 00:00: mouth [place] mg (65 mg 00 the Medical iron) morning Branch tablet and 1 tablet at noon and 1 tablet in the evening. Take with meals. ascorbic 2022-0 Yes [id number] 500mg Take 1 Un ryan acid, 8-02 tablet by ity of vitamin C, 00:00: mouth [place] (VITAMIN C) 00 the Medical 500 mg morning. Branch tablet ferrous 2022-0 Yes [id number] 325mg Take 1 Uni vers sulfate 8-02 tablet by ity of (IRON) 325 00:00: mouth [place] mg (65 mg 00 the Medical iron) morning Branch tablet and 1 tablet at noon and 1 tablet in the evening. Take with meals. ascorbic 2022-0 Yes [id number] 500mg Take 1 Un ryan acid, 8-02 tablet by ity of vitamin C, 00:00: mouth in [place] (VITAMIN C) 00 the Medical 500 mg morning. Branch tablet ferrous 2022-0 Yes [id number] 325mg Take 1 Uni vers sulfate 8-02 tablet by ity of (IRON) 325 00:00: mouth [place] mg (65 mg 00 the Medical iron) morning Branch tablet and 1 tablet at noon and 1 tablet in the evening. Take with meals. ascorbic 2022-0 Yes [id number] 500mg Take 1 Un ryan acid, 8-02 tablet by ity of vitamin C, 00:00: mouth [place] (VITAMIN C) 00 the Medical 500 mg morning. Branch tablet ferrous 2022-0 Yes [id number] 325mg Take 1 Uni vers sulfate 8-02 tablet by ity of (IRON) 325 00:00: mouth [place] mg (65 mg 00 the Medical iron) morning Branch tablet and 1 tablet at noon and 1 tablet in the evening. Take with meals. ascorbic 2022-0 Yes [id number] 500mg Take 1 Un ryan acid, 8-02 tablet by ity of vitamin C, 00:00: mouth in [place] (VITAMIN C) 00 the Medical 500 mg morning. Branch tablet ferrous 2022-0 Yes [id number] 325mg Take 1 Uni vers sulfate 8-02 tablet by ity of (IRON) 325 00:00: mouth [place] mg (65 mg 00 the Medical iron) morning Branch tablet and 1 tablet at noon and 1 tablet in the evening. Take with meals. ascorbic 2022-0 Yes [id number] 500mg Take 1 Un ryan acid, 8-02 tablet by ity of vitamin C, 00:00: mouth in [place] (VITAMIN C) 00 the Medical 500 mg morning. Branch tablet ferrous 2022-0 Yes [id number] 325mg Take 1 Uni vers sulfate 8-02 tablet by ity of (IRON) 325 00:00: mouth in [place] mg (65 mg 00 the Medical iron) morning Branch tablet and 1 tablet at noon and 1 tablet in the evening. Take with meals. ascorbic 3-0 Yes [id number] 500mg Take 1 Un ryan acid, 8-02 tablet by ity of vitamin C, 00:00: mouth in [place] (VITAMIN C) 00 the Medical 500 mg morning. Branch tablet ferrous 2022-0 Yes [id number] 325mg Take 1 Uni vers sulfate 8-02 tablet by ity of (IRON) 325 00:00: mouth in [place] mg (65 mg 00 the Medical iron) morning Branch tablet and 1 tablet at noon and 1 tablet in the evening. Take with meals. ascorbic 2022-0 Yes [id number] 500mg Take 1 Un ryan acid, 06-07 tablet by ity of vitamin C, 00:00: mouth in [place] (VITAMIN C) 00 the Medical 500 mg morning. Branch tablet ferrous 2022-0 Yes [id number] 325mg Take 1 Uni vers sulfate 06-07 tablet by ity of (IRON) 325 00:00: mouth in [place] mg (65 mg 00 the Medical iron) morning Branch tablet and 1 tablet at noon and 1 tablet in the evening. Take with meals. ascorbic 2022-0 Yes [id number] 500mg Take 1 Un ryan acid, 06-07 tablet by ity of vitamin C, 00:00: mouth in [place] (VITAMIN C) 00 the Medical 500 mg morning. Branch tablet lisdexamfet 2022- No 20mg Take 1 Uni vers amine 06-06 capsule by ity of (VYVANSE) 10:56: 00:00 mouth [place] 20 mg 32 :00 every Medical capsule morning. Branch lisdexamfet 0 2022- No 20mg Take 1 Uni vers amine 06-06 capsule by ity of (VYVANSE) 10:56: 00:00 mouth [place] 20 mg 32 :00 every Medical capsule morning. Branch ALPRAZolam 2022-0 2023- No 1mg Take 1 Univ ers (XANAX) 1 06-06 tablet by ity of mg tablet 10:53: 00:00 mouth in [place] 11 :00 the Medical morning Branch and 1 tablet in the evening. ALPRAZolam 0 2022- No 1mg Take 1 Univ ers (XANAX) 1 06-06 tablet by ity of mg tablet 10:53: 00:00 mouth in [place] 11 :00 the Medical morning Branch and 1 tablet in the evening. levothyroxi 2022-0 Yes [id number] 75ug Take 1 Univers ne 75 mcg 06-06 tablet by ity o f tablet 00:00: mouth [place] 00 every Medical morning. Branch lithium 600 2022-0 Yes [id number] 600mg Take 1 Univers mg capsule 06-06 capsule by ity of 00:00: mouth in [place] 00 the Medical morning. Branch pantoprazol 3-0 Yes [id number] 40mg Take 1 Univers e 40 mg EC 8-01 tablet by ity of tablet 00:00: mouth [place] 00 every Medical morning. Branch QUEtiapine 2023-0 Yes [id number] 300mg Take 1 Univers 300 mg 8-01 tablet by ity of tablet 00:00: mouth in [place] 00 the Medical morning Branch and 1 tablet in the evening. levothyroxi 2023-0 Yes [id number] 75ug Take 1 Univers ne 75 mcg 8-01 tablet by ity o f tablet 00:00: mouth [place] 00 every Medical morning. Branch lithium 600 3-0 Yes [id number] 600mg Take 1 Univers mg capsule 8-01 capsule by ity of 00:00: mouth in [place] 00 the Medical morning. Branch pantoprazol 3-0 Yes [id number] 40mg Take 1 Univers e 40 mg EC 8-01 tablet by ity of tablet 00:00: mouth [place] 00 every Medical morning. Branch QUEtiapine 3-0 Yes [id number] 300mg Take 1 Univers 300 mg 8-01 tablet by ity of tablet 00:00: mouth in [place] 00 the Medical morning Branch and 1 tablet in the evening. levothyroxi 2023-0 Yes [id number] 75ug Take 1 Univers ne 75 mcg 8-01 tablet by ity o f tablet 00:00: mouth [place] 00 every Medical morning. Branch lithium 600 3-0 Yes [id number] 600mg Take 1 Univers mg capsule 8-01 capsule by ity of 00:00: mouth in [place] 00 the Medical morning. Branch pantoprazol 3-0 Yes [id number] 40mg Take 1 Univers e 40 mg EC 8-01 tablet by ity of tablet 00:00: mouth [place] 00 every Medical morning. Branch QUEtiapine 2023-0 Yes [id number] 300mg Take 1 Univers 300 mg 8-01 tablet by ity of tablet 00:00: mouth in [place] 00 the Medical morning Branch and 1 tablet in the evening. levothyroxi 2023-0 Yes [id number] 75ug Take 1 Univers ne 75 mcg 8-01 tablet by ity o f tablet 00:00: mouth [place] 00 every Medical morning. Branch lithium 600 3-0 Yes [id number] 600mg Take 1 Univers mg capsule 8-01 capsule by ity of 00:00: mouth in [place] 00 the Medical morning. Branch pantoprazol 2023-0 Yes [id number] 40mg Take 1 Univers e 40 mg EC 8-01 tablet by ity of tablet 00:00: mouth [place] 00 every Medical morning. Branch QUEtiapine 2023-0 Yes [id number] 300mg Take 1 Univers 300 mg 8-01 tablet by ity of tablet 00:00: mouth in [place] 00 the Medical morning Branch and 1 tablet in the evening. levothyroxi 2023-0 Yes [id number] 75ug Take 1 Univers ne 75 mcg 8-01 tablet by ity o f tablet 00:00: mouth [place] 00 every Medical morning. Branch lithium 600 3-0 Yes [id number] 600mg Take 1 Univers mg capsule 8-01 capsule by ity of 00:00: mouth in [place] 00 the Medical morning. Branch pantoprazol 2023-0 Yes [id number] 40mg Take 1 Univers e 40 mg EC 8-01 tablet by ity of tablet 00:00: mouth [place] 00 every Medical morning. Branch QUEtiapine 2023-0 Yes [id number] 300mg Take 1 Univers 300 mg 8-01 tablet by ity of tablet 00:00: mouth in [place] 00 the Medical morning Branch and 1 tablet in the evening. levothyroxi 2023-0 Yes [id number] 75ug Take 1 Univers ne 75 mcg 8-01 tablet by ity o f tablet 00:00: mouth [place] 00 every Medical morning. Branch lithium 600 3-0 Yes [id number] 600mg Take 1 Univers mg capsule 8-01 capsule by ity of 00:00: mouth in [place] 00 the Medical morning. Branch pantoprazol 2023-0 Yes [id number] 40mg Take 1 Univers e 40 mg EC 8-01 tablet by ity of tablet 00:00: mouth [place] 00 every Medical morning. Branch QUEtiapine 2023-0 Yes [id number] 300mg Take 1 Univers 300 mg 8-01 tablet by ity of tablet 00:00: mouth in [place] 00 the Medical morning Branch and 1 tablet in the evening. levothyroxi 2023-0 Yes [id number] 75ug Take 1 Univers ne 75 mcg 8-01 tablet by ity o f tablet 00:00: mouth [place] 00 every Medical morning. Branch lithium 600 2023-0 Yes [id number] 600mg Take 1 Univers mg capsule 8-01 capsule by ity of 00:00: mouth in [place] 00 the Medical morning. Branch pantoprazol 2023-0 Yes [id number] 40mg Take 1 Univers e 40 mg EC 8-01 tablet by ity of tablet 00:00: mouth [place] 00 every Medical morning. Branch QUEtiapine 2023-0 Yes [id number] 300mg Take 1 Univers 300 mg 8-01 tablet by ity of tablet 00:00: mouth in [place] 00 the Medical morning Branch and 1 tablet in the evening. levothyroxi 2023-0 Yes [id number] 75ug Take 1 Univers ne 75 mcg 8-01 tablet by ity o f tablet 00:00: mouth [place] 00 every Medical morning. Branch lithium 600 3-0 Yes [id number] 600mg Take 1 Univers mg capsule 8-01 capsule by ity of 00:00: mouth in [place] 00 the Medical morning. Branch pantoprazol 3-0 Yes [id number] 40mg Take 1 Univers e 40 mg EC 8-01 tablet by ity of tablet 00:00: mouth [place] 00 every Medical morning. Branch QUEtiapine 3-0 Yes [id number] 300mg Take 1 Univers 300 mg 8-01 tablet by ity of tablet 00:00: mouth in [place] 00 the Medical morning Branch and 1 tablet in the evening. levothyroxi 3-0 Yes [id number] 75ug Take 1 Univers ne 75 mcg 8-01 tablet by ity o f tablet 00:00: mouth [place] 00 every Medical morning. Branch lithium 600 3-0 Yes [id number] 600mg Take 1 Univers mg capsule 8-01 capsule by ity of 00:00: mouth in [place] 00 the Medical morning. Branch pantoprazol 2023-0 Yes [id number] 40mg Take 1 Univers e 40 mg EC 8-01 tablet by ity of tablet 00:00: mouth [place] 00 every Medical morning. Branch QUEtiapine 2023-0 Yes [id number] 300mg Take 1 Univers 300 mg 8-01 tablet by ity of tablet 00:00: mouth in [place] 00 the Medical morning Branch and 1 tablet in the evening. levothyroxi 2023-0 Yes [id number] 75ug Take 1 Univers ne 75 mcg 8-01 tablet by ity o f tablet 00:00: mouth [place] 00 every Medical morning. Branch lithium 600 3-0 Yes [id number] 600mg Take 1 Univers mg capsule 8-01 capsule by ity of 00:00: mouth in [place] 00 the Medical morning. Branch pantoprazol 3-0 Yes [id number] 40mg Take 1 Univers e 40 mg EC 8-01 tablet by ity of tablet 00:00: mouth [place] 00 every Medical morning. Branch QUEtiapine 3-0 Yes [id number] 300mg Take 1 Univers 300 mg 8-01 tablet by ity of tablet 00:00: mouth in [place] 00 the Medical morning Branch and 1 tablet in the evening. levothyroxi 2023-0 Yes [id number] 75ug Take 1 Univers ne 75 mcg 8-01 tablet by ity o f tablet 00:00: mouth [place] 00 every Medical morning. Branch lithium 600 3-0 Yes [id number] 600mg Take 1 Univers mg capsule 8-01 capsule by ity of 00:00: mouth in [place] 00 the Medical morning. Branch pantoprazol 3-0 Yes [id number] 40mg Take 1 Univers e 40 mg EC 8-01 tablet by ity of tablet 00:00: mouth [place] 00 every Medical morning. Branch QUEtiapine 3-0 Yes [id number] 300mg Take 1 Univers 300 mg 8-01 tablet by ity of tablet 00:00: mouth in [place] 00 the Medical morning Branch and 1 tablet in the evening. levothyroxi 3-0 Yes [id number] 75ug Take 1 Univers ne 75 mcg 8-01 tablet by ity o f tablet 00:00: mouth [place] 00 every Medical morning. Branch lithium 600 3-0 Yes [id number] 600mg Take 1 Univers mg capsule 8-01 capsule by ity of 00:00: mouth in [place] 00 the Medical morning. Branch pantoprazol 3-0 Yes [id number] 40mg Take 1 Univers e 40 mg EC 8-01 tablet by ity of tablet 00:00: mouth [place] 00 every Medical morning. Branch QUEtiapine 3-0 Yes [id number] 300mg Take 1 Univers 300 mg 8-01 tablet by ity of tablet 00:00: mouth in [place] 00 the Medical morning Branch and 1 tablet in the evening. levothyroxi 2023-0 Yes [id number] 75ug Take 1 Univers ne 75 mcg 8-01 tablet by ity o f tablet 00:00: mouth [place] 00 every Medical morning. Branch lithium 600 3-0 Yes [id number] 600mg Take 1 Univers mg capsule 8-01 capsule by ity of 00:00: mouth in [place] 00 the Medical morning. Branch pantoprazol 3-0 Yes [id number] 40mg Take 1 [facility] e 40 mg EC 8-01 tablet by ity of tablet 00:00: mouth [place] 00 every Medical morning. Branch QUEtiapine 3-0 Yes [id number] 300mg Take 1 [facility] 300 mg 8-01 tablet by ity of tablet 00:00: mouth in [place] 00 the Medical morning Branch and 1 tablet in the evening. levothyroxi 2023-0 Yes [id number] 75ug Take 1 [facility] ne 75 mcg 8-01 tablet by ity o f tablet 00:00: mouth [place] 00 every Medical morning. Branch lithium 600 3-0 Yes [id number] 600mg Take 1 [facility] mg capsule 8-01 capsule by ity of 00:00: mouth in [place] 00 the Medical morning. Branch pantoprazol 3-0 Yes [id number] 40mg Take 1 [facility] e 40 mg EC 8-01 tablet by ity of tablet 00:00: mouth [place] 00 every Medical morning. Branch QUEtiapine 3-0 Yes [id number] 300mg Take 1 [facility] 300 mg 8-01 tablet by ity of tablet 00:00: mouth in [place] 00 the Medical morning Branch and 1 tablet in the evening. levothyroxi 2023-0 Yes [id number] 75ug Take 1 [facility] ne 75 mcg 8-01 tablet by ity o f tablet 00:00: mouth [place] 00 every Medical morning. Branch lithium 600 3-0 Yes [id number] 600mg Take 1 [facility] mg capsule 8-01 capsule by ity of 00:00: mouth in [place] 00 the Medical morning. Branch pantoprazol 3-0 Yes [id number] 40mg Take 1 [facility] e 40 mg EC 8-01 tablet by ity of tablet 00:00: mouth [place] 00 every Medical morning. Branch QUEtiapine 2023-0 Yes [id number] 300mg Take 1 [facility] 300 mg 8-01 tablet by ity of tablet 00:00: mouth in [place] 00 the Medical morning Branch and 1 tablet in the evening. levothyroxi 2023-0 Yes [id number] 75ug Take 1 [facility] ne 75 mcg 8-01 tablet by ity o f tablet 00:00: mouth [place] 00 every Medical morning. Branch lithium 600 2023-0 Yes [id number] 600mg Take 1 [facility] mg capsule 8-01 capsule by ity of 00:00: mouth in [place] 00 the Medical morning. Branch pantoprazol 2022-0 Yes [id number] 40mg Take 1 [facility] e 40 mg EC 8-01 tablet by ity of tablet 00:00: mouth [place] 00 every Medical morning. Branch QUEtiapine 2022-0 Yes [id number] 300mg Take 1 [facility] 300 mg 8-01 tablet by ity of tablet 00:00: mouth in [place] 00 the Medical morning Branch and 1 tablet in the evening. levothyroxi 2022-0 Yes [id number] 75ug Take 1 [facility] ne 75 mcg 8-01 tablet by ity o f tablet 00:00: mouth [place] 00 every Medical morning. Branch lithium 600 2022-0 Yes [id number] 600mg Take 1 [facility] mg capsule 8-01 capsule by ity of 00:00: mouth in [place] 00 the Medical morning. Branch pantoprazol 2022-0 Yes [id number] 40mg Take 1 [facility] e 40 mg EC 8-01 tablet by ity of tablet 00:00: mouth [place] 00 every Medical morning. Branch QUEtiapine 2022-0 Yes [id number] 300mg Take 1 [facility] 300 mg 8-01 tablet by ity of tablet 00:00: mouth in [place] 00 the Medical morning Branch and 1 tablet in the evening. diclofenac 2022-0 2022- No [id number] 75mg Take 1 [facility] 75 mg EC 5-23 06-23 tablet by ity o f tablet 00:00: 04:59 mouth in [place] 00 :00 the Medical morning Branch and 1 tablet in the evening. Take with meals. Do all this for 30 days. diclofenac 2022-0 2022- No [id number] 75mg Take 1 [facility] 75 mg EC 5-23 06-23 tablet by ity o f tablet 00:00: 04:59 mouth in [place] 00 :00 the Medical morning Branch and 1 tablet in the evening. Take with meals. Do all this for 30 days. triamcinolo 2022-0 2022- No [id number] 40mg [facility] ne -02-20 [id number] ity of acetonide 20:15: 19:28 [place] (KENALOG) 00 :00 Medical injection Branch 40 mg triamcinolo 2022-2022- No [id number] 40mg 40 mg, [facility] ne 02-20 [id number] Intramuscu ity of acetonide 20:15: 19:28 [place], ONCE, [place] ([place] 00 :00 1 dose, On Medi allen injection Mon Branch 40 mg 02/20/23 at 1515, Routine meloxicam 3- No [id number] 15mg Take 1 [facility] 15 mg 02-20 [id number] tablet by ity of tablet 00:00: 04:59 mouth in [place] 00 :00 the [facility] Branch for 30 days. meloxicam 2022- No [id number] 15mg Take 1 [facility] 15 mg 02-20 [id number] tablet by ity of tablet 00:00: 04:59 mouth in [place] 00 :00 the [facility] Branch for 30 days. atomoxetine Yes TAKE ONE [facility] 100 mg 3-23 (1) ity of capsule 00:00: CAP[place]LE(S) [place] 00 BY MOUTH Medical EVERY Branch MORNING. diclofenac Yes TAKE ONE [facility] vers 50 mg 3-23 (1) ity of tablet 00:00: TABLET(S) BY MOUTH Medical TWICE A Branch DAY WITH MILK OR FOOD NEEDED. atomoxetine Yes TAKE ONE [facility] 100 mg 3-23 (1) ity of capsule 00:00: CAPSULE(S) [place] 00 BY MOUTH Medical EVERY Branch MORNING. diclofenac Yes TAKE ONE [facility] vers 50 mg 3-23 (1) ity of tablet 00:00: TABLET(S) BY MOUTH Medical TWICE A Branch DAY WITH MILK OR FOOD NEEDED. atomoxetine Yes TAKE ONE [facility] 100 mg 3-23 (1) ity of capsule 00:00: CAPSULE(S) [place] 00 BY MOUTH Medical EVERY Branch MORNING. atomoxetine Yes TAKE ONE [facility] 100 mg 3-23 (1) ity of capsule 00:00: CAPSULE(S) [place] 00 BY MOUTH Medical EVERY Branch MORNING. atomoxetine Yes TAKE ONE [facility] 100 mg 3-23 (1) ity of capsule 00:00: CAPSULE(S) [place] 00 BY MOUTH Medical EVERY Branch MORNING. atomoxetine Yes TAKE ONE [facility] 100 mg 3-23 (1) ity of capsule 00:00: CAPSULE(S) [place] 00 BY MOUTH Medical EVERY Branch MORNING. atomoxetine 2022-0 Yes TAKE ONE [facility] 100 mg 3-23 (1) ity of capsule 00:00: CAPSULE(S) [place] 00 BY MOUTH Medical EVERY Branch MORNING. atomoxetine 2022-0 Yes TAKE ONE [facility] 100 mg 3-23 (1) ity of capsule 00:00: CAPSULE(S) [place] 00 BY MOUTH Medical EVERY Branch MORNING. atomoxetine 2022-0 Yes TAKE ONE [facility] 100 mg 3-23 (1) ity of capsule 00:00: CAPSULE(S) [place] 00 BY MOUTH Medical EVERY Branch MORNING. atomoxetine 2022-0 Yes TAKE ONE [facility] 100 mg 3-23 (1) ity of capsule 00:00: CAPSULE(S) [place] 00 BY MOUTH Medical EVERY Branch MORNING. diclofenac 2022-0 Yes TAKE ONE [facility] vers 50 mg 3-23 (1) ity of tablet 00:00: TABLET(S) [place] 00 BY MOUTH Medical TWICE A Branch DAY WITH MILK OR FOOD NEEDED. atomoxetine 2022-0 Yes TAKE ONE [facility] 100 mg 3-23 (1) ity of capsule 00:00: CAPSULE(S) [place] 00 BY MOUTH Medical EVERY Branch MORNING. diclofenac 2022-0 Yes TAKE ONE [facility] vers 50 mg 3-23 (1) ity of tablet 00:00: TABLET(S) [place] 00 BY MOUTH Medical TWICE A Branch DAY WITH MILK OR FOOD NEEDED. atomoxetine 2022-0 Yes TAKE ONE [facility] 100 mg 3-23 (1) ity of capsule 00:00: CAPSULE(S) [place] 00 BY MOUTH Medical EVERY Branch MORNING. diclofenac 2022-0 Yes TAKE ONE [facility] vers 50 mg 3-23 (1) ity of tablet 00:00: TABLET(S) [place] 00 BY MOUTH Medical TWICE A Branch DAY WITH MILK OR FOOD NEEDED. atomoxetine 2022-0 Yes TAKE ONE [facility] 100 mg 3-23 (1) ity of capsule 00:00: CAPSULE(S) [place] 00 BY MOUTH Medical EVERY Branch MORNING. diclofenac 3-0 Yes TAKE ONE [facility] vers 50 mg 3-23 (1) ity of tablet 00:00: TABLET(S) [place] 00 BY MOUTH Medical TWICE A Branch DAY WITH MILK OR FOOD NEEDED. atomoxetine 2022-2022- No TAKE ONE U nivers 100 mg 01-26 (1) ity of capsule 00:00: 00:00 CAPSULE(S) [place] 00 :00 BY MOUTH Medical EVERY Branch MORNING. atomoxetine 0 2022- No TAKE ONE U nivers 100 mg 01-26 (1) ity of capsule 00:00: 00:00 CAPSULE(S) [place] 00 :00 BY MOUTH Medical EVERY Branch MORNING. diclofenac 2022- No TAKE ONE Un ryan 50 mg 01-2617 (1) ity of tablet 00:00: 00:00 TABLET(S) [place] 00 :00 BY MOUTH Medical TWICE A Branch DAY WITH MILK OR FOOD NEEDED. diclofenac 0 2022- No TAKE ONE [facility]yan 50 mg 01-2617 (1) ity of tablet 00:00: 00:00 TABLET(S) [place] 00 :00 BY MOUTH Medical TWICE A Branch DAY WITH MILK OR FOOD NEEDED. diclofenac 0 2022- No TAKE ONE [facility] 50 mg 01-2617 (1) ity of tablet 00:00: 00:00 TABLET(S) [place] 00 :00 BY MOUTH Medical TWICE A Branch DAY WITH MILK OR FOOD NEEDED. diclofenac 2022-0 2022- No TAKE ONE [facility] 50 mg 01-26-17 (1) ity of tablet 00:00: 00:00 TABLET(S) [place] 00 :00 BY MOUTH Medical TWICE A Branch DAY WITH MILK OR FOOD NEEDED. pantoprazol 2022-0 Yes TAKE ONE [facility] e 40 mg EC 3-20 (1) ity of tablet 00:00: TABLET(S) [place] 00 BY MOUTH Medical ONCE A DAY Branch IN THE MORNING. pantoprazol 2022-0 Yes TAKE ONE [facility] e 40 mg EC 3-20 (1) ity of tablet 00:00: TABLET(S) [place] 00 BY MOUTH Medical ONCE A DAY Branch IN THE MORNING. pantoprazol 2022-0 Yes TAKE ONE [facility] e 40 mg EC 3-20 (1) ity of tablet 00:00: TABLET(S) [place] 00 BY MOUTH Medical ONCE A DAY Branch IN THE MORNING. pantoprazol 2023-0 Yes TAKE ONE [facility] e 40 mg EC 3-20 (1) ity of tablet 00:00: TABLET(S) [place] 00 BY MOUTH Medical ONCE A DAY Branch IN THE MORNING. pantoprazol 3-0 Yes TAKE ONE [facility] e 40 mg EC 3-20 (1) ity of tablet 00:00: TABLET(S) [place] 00 BY MOUTH Medical ONCE A DAY Branch IN THE MORNING. pantoprazol 3-0 Yes TAKE ONE [facility] e 40 mg EC 3-20 (1) ity of tablet 00:00: TABLET(S) [place] 00 BY MOUTH Medical ONCE A DAY Branch IN THE MORNING. pantoprazol 3-0 Yes TAKE ONE [facility] e 40 mg EC 3-20 (1) ity of tablet 00:00: TABLET(S) [place] 00 BY MOUTH Medical ONCE A DAY Branch IN THE MORNING. pantoprazol 3-0 Yes TAKE ONE [facility] e 40 mg EC 3-20 (1) ity of tablet 00:00: TABLET(S) [place] 00 BY MOUTH Medical ONCE A DAY Branch IN THE MORNING. pantoprazol 3-0 Yes TAKE ONE [facility] e 40 mg EC 3-20 (1) ity of tablet 00:00: TABLET(S) [place] 00 BY MOUTH Medical ONCE A DAY Branch IN THE MORNING. pantoprazol 3-0 Yes TAKE ONE [facility] e 40 mg EC 3-20 (1) ity of tablet 00:00: TABLET(S) [place] 00 BY MOUTH Medical ONCE A DAY Branch IN THE MORNING. pantoprazol 3-0 Yes TAKE ONE Un [facility] e 40 mg EC 3-20 (1) ity of tablet 00:00: TABLET(S) [place] 00 BY MOUTH Medical ONCE A DAY Branch IN THE MORNING. pantoprazol 3-0 Yes TAKE ONE Un [facility] e 40 mg EC 3-20 (1) ity of tablet 00:00: TABLET(S) [place] 00 BY MOUTH Medical ONCE A DAY Branch IN THE MORNING. pantoprazol 3-0 Yes TAKE ONE [facility] e 40 mg EC 3-20 (1) ity of tablet 00:00: TABLET(S) [place] 00 BY MOUTH Medical ONCE A DAY Branch IN THE MORNING. pantoprazol 2023-0 2023- No TAKE ONE U nivers e 40 mg EC 3-20 06-06 (1) ity of tablet 00:00: 00:00 TABLET(S) [place] 00 :00 BY MOUTH Medical ONCE A DAY Branch IN THE MORNING. pantoprazol 2022- No TAKE ONE U nivers e 40 mg EC 306-06 (1) ity of tablet 00:00: 00:00 TABLET(S) [place] 00 :00 BY MOUTH Medical ONCE A DAY Branch IN THE MORNING. naproxen Yes TAKE ONE Unive rs 500 mg 2-23 (1) ity of tablet 00:00: TABLET(S) [place] 00 BY MOUTH Medical EVERY 12 Branch HOURS WITH FOOD. traMADoL 50 Yes TAKE ONE Un ryan mg tablet 2-23 (1) ity of 00:00: TABLET(S) [place] 00 BY MOUTH Medical TWICE A Branch DAY NEEDED FOR PAIN. naproxen Yes TAKE ONE Unive rs 500 mg 2-23 (1) ity of tablet 00:00: TABLET(S) [place] 00 BY MOUTH Medical EVERY 12 Branch HOURS WITH FOOD. traMADoL 50 Yes TAKE ONE Un ryan mg tablet 2-23 (1) ity of 00:00: TABLET(S) [place] 00 BY MOUTH Medical TWICE A Branch DAY NEEDED FOR PAIN. traMADoL 50 Yes TAKE ONE Un ryan mg tablet 2-23 (1) ity of 00:00: TABLET(S) [place] 00 BY MOUTH Medical TWICE A Branch DAY NEEDED FOR PAIN. traMADoL 50 Yes TAKE ONE Un ryan mg tablet 2-23 (1) ity of 00:00: TABLET(S) [place] 00 BY MOUTH Medical TWICE A Branch DAY NEEDED FOR PAIN. traMADoL 50 Yes TAKE ONE Un ryan mg tablet 2-23 (1) ity of 00:00: TABLET(S) [place] 00 BY MOUTH Medical TWICE A Branch DAY NEEDED FOR PAIN. traMADoL 50 Yes TAKE ONE Un ryan mg tablet 2-23 (1) ity of 00:00: TABLET(S) [place] 00 BY MOUTH Medical TWICE A Branch DAY NEEDED FOR PAIN. traMADoL 50 Yes TAKE ONE Un ryan mg tablet 2-23 (1) ity of 00:00: TABLET(S) [place] 00 BY MOUTH Medical TWICE A Branch DAY NEEDED FOR PAIN. traMADoL 50 0 Yes TAKE ONE Un ryan mg tablet 2-23 (1) ity of 00:00: TABLET(S) [place] 00 BY MOUTH Medical TWICE A Branch DAY NEEDED FOR PAIN. traMADoL 50 0 Yes TAKE ONE Un ryan mg tablet 2-23 (1) ity of 00:00: TABLET(S) [place] 00 BY MOUTH Medical TWICE A Branch DAY NEEDED FOR PAIN. naproxen 0 Yes TAKE ONE Unive rs 500 mg 2-23 (1) ity of tablet 00:00: TABLET(S) [place] 00 BY MOUTH Medical EVERY 12 Branch HOURS WITH FOOD. traMADoL 50 0 Yes TAKE ONE Un ryan mg tablet 2-23 (1) ity of 00:00: TABLET(S) [place] 00 BY MOUTH Medical TWICE A Branch DAY NEEDED FOR PAIN. naproxen 0 Yes TAKE ONE Unive rs 500 mg 2-23 (1) ity of tablet 00:00: TABLET(S) [place] 00 BY MOUTH Medical EVERY 12 Branch HOURS WITH FOOD. traMADoL 50 0 Yes TAKE ONE Un ryan mg tablet 2-23 (1) ity of 00:00: TABLET(S) [place] 00 BY MOUTH Medical TWICE A Branch DAY NEEDED FOR PAIN. naproxen 0 Yes TAKE ONE Unive rs 500 mg 2-23 (1) ity of tablet 00:00: TABLET(S) [place] 00 BY MOUTH Medical EVERY 12 Branch HOURS WITH FOOD. traMADoL 50 0 Yes TAKE ONE Un ryan mg tablet 2-23 (1) ity of 00:00: TABLET(S) [place] 00 BY MOUTH Medical TWICE A Branch DAY NEEDED FOR PAIN. naproxen 0 Yes TAKE ONE Unive rs 500 mg 2-23 (1) ity of tablet 00:00: TABLET(S) [place] 00 BY MOUTH Medical EVERY 12 Branch HOURS WITH FOOD. traMADoL 50 0 Yes TAKE ONE Un ryan mg tablet 2-23 (1) ity of 00:00: TABLET(S) [place] 00 BY MOUTH Medical TWICE A Branch DAY NEEDED FOR PAIN. traMADoL 50 2022-0 2022- No TAKE ONE U nivers mg tablet 2-23 06-06 (1) ity of 00:00: 00:00 TABLET(S) [place] 00 :00 BY MOUTH Medical TWICE A Branch DAY NEEDED FOR PAIN. traMADoL 50 2022- No TAKE ONE U nivers mg tablet 12-29 (1) ity of 00:00: 00:00 TABLET(S) [place] 00 :00 BY MOUTH Medical TWICE A Branch DAY NEEDED FOR PAIN. naproxen 2022-0 2022- No TAKE ONE Univ ers 500 mg 12-29 (1) ity of tablet 00:00: 00:00 TABLET(S) [place] 00 :00 BY MOUTH Medical EVERY 12 Branch HOURS WITH FOOD. naproxen 2022-0 2022- No TAKE ONE Univ ers 500 mg 12-29 (1) ity of tablet 00:00: 00:00 TABLET(S) [place] 00 :00 BY MOUTH Medical EVERY 12 Branch HOURS WITH FOOD. naproxen 2022-0 2022- No TAKE ONE Univ ers 500 mg 12-29 (1) ity of tablet 00:00: 00:00 TABLET(S) [place] 00 :00 BY MOUTH Medical EVERY 12 Branch HOURS WITH FOOD. naproxen 2022-0 2022- No TAKE ONE Univ ers 500 mg 12-29 (1) ity of tablet 00:00: 00:00 TABLET(S) [place] 00 :00 BY MOUTH Medical EVERY 12 Branch HOURS WITH FOOD. escitalopra 2023-0 Yes 10mg Take 1 Univ ers m oxalate 2-09 tablet by ity o f 10 mg 00:00: mouth in [place] tablet 00 the Medical morning Branch and 1 tablet in the evening. escitalopra 2023-0 Yes 10mg Take 1 Univ ers m oxalate 2-09 tablet by ity o f 10 mg 00:00: mouth in [place] tablet 00 the Medical morning Branch and 1 tablet in the evening. escitalopra 2023-0 Yes 10mg Take 1 Univ ers m oxalate 2-09 tablet by ity o f 10 mg 00:00: mouth in [place] tablet 00 the Medical morning Branch and 1 tablet in the evening. escitalopra 2023-0 Yes 10mg Take 1 Univ ers m oxalate 2-09 tablet by ity o f 10 mg 00:00: mouth in [place] tablet 00 the Medical morning Branch and 1 tablet in the evening. escitalopra 2023-0 Yes 10mg Take 1 Univ ers m oxalate 2-09 tablet by ity o f 10 mg 00:00: mouth in [place] tablet 00 the Medical morning Branch and 1 tablet in the evening. escitalopra 2023-0 Yes 10mg Take 1 Univ ers m oxalate 2-09 tablet by ity o f 10 mg 00:00: mouth in [place] tablet 00 the Medical morning Branch and 1 tablet in the evening. escitalopra 2023-0 Yes 10mg Take 1 Univ ers m oxalate 2-09 tablet by ity o f 10 mg 00:00: mouth in [place] tablet 00 the Medical morning Branch and 1 tablet in the evening. escitalopra 2023-0 Yes 10mg Take 1 Univ ers m oxalate 2-09 tablet by ity o f 10 mg 00:00: mouth in [place] tablet 00 the Medical morning Branch and 1 tablet in the evening. escitalopra 2023-0 Yes 10mg Take 1 Univ ers m oxalate 2-09 tablet by ity o f 10 mg 00:00: mouth in [place] tablet 00 the Medical morning Branch and 1 tablet in the evening. escitalopra 2023-0 Yes 10mg Take 1 Univ ers m oxalate 2-09 tablet by ity o f 10 mg 00:00: mouth in [place] tablet 00 the Medical morning Branch and 1 tablet in the evening. escitalopra 2023-0 Yes 10mg Take 1 Univ ers m oxalate 2-09 tablet by ity o f 10 mg 00:00: mouth in [place] tablet 00 the Medical morning Branch and 1 tablet in the evening. escitalopra 2023-0 Yes 10mg Take 1 Univ ers m oxalate 2-09 tablet by ity o f 10 mg 00:00: mouth in [place] tablet 00 the Medical morning Branch and 1 tablet in the evening. escitalopra 2023-0 Yes 10mg Take 1 Univ ers m oxalate 2-09 tablet by ity o f 10 mg 00:00: mouth in [place] tablet 00 the Medical morning Branch and 1 tablet in the evening. escitalopra 2023-0 2023- No 10mg Take 1 Uni vers m oxalate 2-09 - tablet by ity of 10 mg 00:00: 00:00 mouth in [place] tablet 00 :00 the Medical morning Branch and 1 tablet in the evening. escitalopra 2023-0 2023- No 10mg Take 1 Uni vers m oxalate 2-09 - tablet by ity of 10 mg 00:00: 00:00 mouth in [place] tablet 00 :00 the Medical morning Branch and 1 tablet in the evening. lithium 600 2022-0 Yes TAKE ONE Un ryan mg capsule 2-08 (1) ity of 00:00: CAPSULE(S) [place] 00 BY [facility] Medical AT [facility]. lithium 600 2022-0 Yes TAKE ONE Un ryan mg capsule 2-08 (1) ity of 00:00: CAPSULE(S) [place] 00 BY [facility] Medical AT [facility]. lithium 600 2022-0 Yes TAKE ONE Un ryan mg capsule 2-08 (1) ity of 00:00: CAPSULE(S) [place] 00 BY [facility] Medical AT [facility]. lithium 600 2022-0 Yes TAKE ONE Un ryan mg capsule 2-08 (1) ity of 00:00: CAPSULE(S) [place] 00 BY [facility] AT [facility]. lithium 600 2022-0 Yes TAKE ONE Un ryan mg capsule 2-08 (1) ity of 00:00: CAPSULE(S) [place] 00 BY [facility] AT [facility]. lithium 600 2022-0 Yes TAKE ONE Un ryan mg capsule 2-08 (1) ity of 00:00: CAPSULE(S) [place] 00 BY [facility] Medical AT [facility]. lithium 600 2022-0 Yes TAKE ONE Un ryan mg capsule 2-08 (1) ity of 00:00: CAPSULE(S) [place] 00 BY [facility] AT [facility]. lithium 600 2022-0 Yes TAKE ONE Un ryan mg capsule 2-08 (1) ity of 00:00: CAPSULE(S) [place] 00 BY [facility] Medical AT [facility]. lithium 600 2022-0 Yes TAKE ONE Un ryan mg capsule 2-08 (1) ity of 00:00: CAPSULE(S) [place] 00 BY [facility] Medical AT [facility]. lithium 600 2022-0 Yes TAKE ONE Un ryan mg capsule 2-08 (1) ity of 00:00: CAPSULE(S) [place] 00 BY [facility] Medical AT [facility]. lithium 600 2022-0 Yes TAKE ONE Un ryan mg capsule 2-08 (1) ity of 00:00: CAPSULE(S) [place] 00 BY [facility] Medical AT [facility]. lithium 600 2022-0 Yes TAKE ONE Un ryan mg capsule 2-08 (1) ity of 00:00: CAPSULE(S) [place] 00 BY MOUTH Medical AT Branch BEDTIME. lithium 600 3-0 Yes TAKE ONE Un ryan mg capsule 12-14 (1) ity of 00:00: CAPSULE(S) [place] 00 BY MOUTH Medical AT Branch BEDTIME. lithium 600 3-0 3- No TAKE ONE U nivers mg capsule 12-14 (1) ity of 00:00: 00:00 CAPSULE(S) [place] 00 :00 BY MOUTH Medical AT Branch BEDTIME. lithium 600 3-0 3- No TAKE ONE U nivers mg capsule 12-14 (1) ity of 00:00: 00:00 CAPSULE(S) [place] 00 :00 BY MOUTH Medical AT Branch BEDTIME. hydrOXYzine 3-0 Yes TAKE ONE Un ryan 25 mg 1-28 (1) ity of tablet 00:00: TABLET(S) [place] 00 BY MOUTH Medical THREE Branch TIMES A DAY NEEDED FOR ANXIETY. hydrOXYzine 3-0 Yes TAKE ONE Un ryan 25 mg 1-28 (1) ity of tablet 00:00: TABLET(S) [place] 00 BY MOUTH Medical THREE Branch TIMES A DAY NEEDED FOR ANXIETY. hydrOXYzine 3-0 Yes TAKE ONE Un ryan 25 mg 1-28 (1) ity of tablet 00:00: TABLET(S) [place] 00 BY MOUTH Medical THREE Branch TIMES A DAY NEEDED FOR ANXIETY. hydrOXYzine 3-0 Yes TAKE ONE Un ryan 25 mg 1-28 (1) ity of tablet 00:00: TABLET(S) [place] 00 BY MOUTH Medical THREE Branch TIMES A DAY NEEDED FOR ANXIETY. hydrOXYzine 3-0 Yes TAKE ONE Un ryan 25 mg 1-28 (1) ity of tablet 00:00: TABLET(S) [place] 00 BY MOUTH Medical THREE Branch TIMES A DAY NEEDED FOR ANXIETY. hydrOXYzine 2023-0 Yes TAKE ONE Un ryan 25 mg 1-28 (1) ity of tablet 00:00: TABLET(S) [place] 00 BY MOUTH Medical THREE Branch TIMES A DAY NEEDED FOR ANXIETY. hydrOXYzine 3-0 Yes TAKE ONE Un ryan 25 mg 1-28 (1) ity of tablet 00:00: TABLET(S) 00 BY MOUTH Medical THREE Branch TIMES A DAY NEEDED FOR ANXIETY. hydrOXYzine 2022-0 Yes TAKE ONE Un ryan 25 mg 1-28 (1) ity of tablet 00:00: TABLET(S) [place] 00 BY MOUTH Medical THREE Branch TIMES A DAY NEEDED FOR ANXIETY. hydrOXYzine 2022-0 Yes TAKE ONE Un ryan 25 mg 1-28 (1) ity of tablet 00:00: TABLET(S) [place] 00 BY MOUTH Medical THREE Branch TIMES A DAY NEEDED FOR ANXIETY. hydrOXYzine 2022-0 Yes TAKE ONE Un ryan 25 mg 1-28 (1) ity of tablet 00:00: TABLET(S) 00 BY MOUTH Medical THREE Branch TIMES A DAY NEEDED FOR ANXIETY. hydrOXYzine 2022-0 Yes TAKE ONE Un ryan 25 mg 1-28 (1) ity of tablet 00:00: TABLET(S) 00 BY MOUTH Medical THREE Branch TIMES A DAY NEEDED FOR ANXIETY. hydrOXYzine 2022-0 Yes TAKE ONE Un ryan 25 mg 1-28 (1) ity of tablet 00:00: TABLET(S) 00 BY MOUTH Medical THREE Branch TIMES A DAY NEEDED FOR ANXIETY. hydrOXYzine 2022-0 Yes TAKE ONE Un ryan 25 mg 1-28 (1) ity of tablet 00:00: TABLET(S) 00 BY MOUTH Medical THREE Branch TIMES A DAY NEEDED FOR ANXIETY. hydrOXYzine 2022-0 2022- No TAKE ONE U nivers 25 mg -28 06-06 (1) ity of tablet 00:00: 00:00 TABLET(S) [place] 00 :00 BY MOUTH Medical THREE Branch TIMES A DAY NEEDED FOR ANXIETY. hydrOXYzine 2022-0 2022- No TAKE ONE U nivers 25 mg -28 06-06 (1) ity of tablet 00:00: 00:00 TABLET(S) [place] 00 :00 BY MOUTH Medical THREE Branch TIMES A DAY NEEDED FOR ANXIETY. levothyroxi 0 Yes 75ug Take 1 Univ ers ne 75 mcg 1-11 tablet by ity o f tablet 00:00: mouth [place] 00 every Medical morning. Branch QUEtiapine 2022-0 Yes TAKE TWO Uni vers 300 mg 1-11 (2) ity of tablet 00:00: TABLET(S) 00 BY MOUTH Medical AT Branch BEDTIME. levothyroxi 2023-0 Yes 75ug Take 1 Univ ers ne 75 mcg 1-11 tablet by ity o f tablet 00:00: mouth [place] 00 every Medical morning. Branch QUEtiapine 3-0 Yes TAKE TWO Uni vers 300 mg 1-11 (2) ity of tablet 00:00: TABLET(S) [place] 00 [facility]0 Yes 75ug Take 1 [facility] ers ne 75 mcg 1-11 tablet by ity o f tablet 00:00: mouth [place] 00 every Medical morning. [place] QUEtiapine 2022-0 Yes TAKE TWO Uni vers 300 mg 1-11 (2) ity of tablet 00:00: TABLET(S) [place] 00 [facility] lev[facility]roxi 3-0 Yes 75ug Take 1 Univ ers ne 75 mcg 1-11 tablet by ity o f tablet 00:00: mouth [place] 00 every Medical morning. [place] QUEtiapine 3-0 Yes TAKE TWO Uni vers 300 mg 1-11 (2) ity of tablet 00:00: TABLET(S) [place] 00 BY [facility] Medical AT [facility]. levothyroxi 3-0 Yes 75ug Take 1 Univ ers ne 75 mcg 1-11 tablet by ity o f tablet 00:00: mouth [place] 00 every Medical morning. [place] QUEtiapine 3-0 Yes TAKE TWO Uni vers 300 mg 1-11 (2) ity of tablet 00:00: TABLET(S) [place] 00 BY [facility] Medical AT [facility]. levothyroxi 3-0 Yes 75ug Take 1 Univ ers ne 75 mcg 1-11 tablet by ity o f tablet 00:00: mouth [place] 00 every Medical morning. [place] QUEtiapine 3-0 Yes TAKE TWO Uni vers 300 mg 1-11 (2) ity of tablet 00:00: TABLET(S) [place] 00 BY [facility] Medical AT [facility]. levothyroxi 2023-0 Yes 75ug Take 1 Univ ers ne 75 mcg 1-11 tablet by ity o f tablet 00:00: mouth [place] 00 every Medical morning. [place] QUEtiapine 3-0 Yes TAKE TWO Uni vers 300 mg 1-11 (2) ity of tablet 00:00: TABLET(S) [place] 00 BY [facility] Medical AT [facility]. levothyroxi 2023-0 Yes 75ug Take 1 Univ ers ne 75 mcg 1-11 tablet by ity o f tablet 00:00: mouth [place] 00 every Medical morning. [place] QUEtiapine 2022-0 Yes TAKE TWO Uni vers 300 mg 1-11 (2) ity of tablet 00:00: TABLET(S) [place] 00 [facility] lev[facility]xi 2022-0 Yes 75ug Take 1 Univ ers ne 75 mcg 1-11 tablet by ity o f tablet 00:00: mouth [place] 00 every Medical morning. Branch QUEtiapine 2022-0 Yes TAKE TWO Uni vers 300 mg 1-11 (2) ity of tablet 00:00: TABLET(S) [place] 00 BY [facility] Medical AT [facility]. levothyroxi 2022-0 Yes 75ug Take 1 Univ ers ne 75 mcg 1-11 tablet by ity o f tablet 00:00: mouth [place] 00 every Medical morning. [place] QUEtiapine 0 Yes TAKE TWO Uni vers 300 mg 1-11 (2) ity of tablet 00:00: TABLET(S) [place] 00 BY [facility] Medical AT [facility]. levothyroxi 2022-0 Yes 75ug Take 1 Univ ers ne 75 mcg 1-11 tablet by ity o f tablet 00:00: mouth [place] 00 every Medical morning. [place] QUEtiapine 0 Yes TAKE TWO Uni vers 300 mg 1-11 (2) ity of tablet 00:00: TABLET(S) [place] 00 BY [facility] Medical AT [facility]. levothyroxi 2022-0 Yes 75ug Take 1 Univ ers ne 75 mcg 1-11 tablet by ity o f tablet 00:00: mouth [place] 00 every Medical morning. [place] QUEtiapine 2022-0 Yes TAKE TWO Uni vers 300 mg 1-11 (2) ity of tablet 00:00: TABLET(S) [place] 00 BY [facility] Medical AT [facility]. levothyroxi 2022-0 Yes 75ug Take 1 Univ ers ne 75 mcg 1-11 tablet by ity o f tablet 00:00: mouth [place] 00 every Medical morning. [place] QUEtiapine 2022-0 Yes TAKE TWO Uni vers 300 mg 1-11 (2) ity of tablet 00:00: TABLET(S) [place] 00 BY [facility] Medical AT [facility]. levothyroxi 2022-0 3- No 75ug Take 1 Uni vers ne 75 mcg 1-11 08-01 tablet by ity of tablet 00:00: 00:00 mouth [place] 00 :00 every Medical morning. [place] QUEtiapine 2022- No TAKE TWO Un ryan 300 mg 11-16 (2) ity of tablet 00:00: 00:00 TABLET(S) [place] 00 :00 BY MOUTH Medical AT [place] BEDTIME. levothyroxi 2022- No 75ug Take 1 Uni vers ne 75 mcg 11-16 tablet by ity of tablet 00:00: 00:00 mouth [place] 00 :00 every Medical morning. [place] QUEtiapine 2022- No TAKE TWO Un ryan 300 mg 11-16 (2) ity of tablet 00:00: 00:00 TABLET(S) [place] 00 :00 [facility]OUTH [facility] [place] [facility] Immunizations Ordered Filled Immunization Date Status Comments [facility] e Immunization Name Name SARS-COV-2 COVID-19 2021-05-21 Completed Unive rsity of PFIZER VACCINE 00:00:00 [facility] SARS-COV-2 COVID-19 2021-05-21 Completed Unive rsity of PFIZER VACCINE 00:00:00 [facility] SARS-COV-2 COVID-19 2021-05-21 Completed Unive rsity of PFIZER VACCINE 00:00:00 [facility] SARS-COV-2 COVID-19 2021-05-21 Completed Unive rsity of PFIZER VACCINE 00:00:00 [facility] SARS-COV-2 COVID-19 2021-05-21 Completed Unive rsity of PFIZER VACCINE 00:00:00 [facility] SARS-COV-2 COVID-19 2021-05-21 Completed Unive rsity of PFIZER VACCINE 00:00:00 [facility] SARS-COV-2 COVID-19 2021-05-21 Completed Unive rsity of PFIZER VACCINE 00:00:00 [facility] SARS-COV-2 COVID-19 2021-05-21 Completed Unive rsity of PFIZER VACCINE 00:00:00 [facility] SARS-COV-2 COVID-19 2021-05-21 Completed Unive rsity of PFIZER VACCINE 00:00:00 [facility] SARS-COV-2 COVID-19 2021-05-21 Completed Unive rsity of PFIZER VACCINE 00:00:00 [facility] SARS-COV-2 COVID-19 2021-05-21 Completed Unive rsity of PFIZER VACCINE 00:00:00 [facility] SARS-COV-2 COVID-19 2021-05-21 Completed Unive rsity of PFIZER VACCINE 00:00:00 [facility] SARS-COV-2 COVID-19 2021-05-21 Completed Unive rsity of PFIZER VACCINE 00:00:00 [facility] SARS-COV-2 COVID-19 2021-05-21 Completed Unive rsity of PFIZER VACCINE 00:00:00 [facility] SARS-COV-2 COVID-19 2021-05-21 Completed Unive rsity of PFIZER VACCINE 00:00:00 [facility] SARS-COV-2 COVID-19 2021-05-21 Completed Unive rsity of PFIZER VACCINE 00:00:00 [facility] SARS-COV-2 COVID-19 2021-05-21 Completed Unive rsity of PFIZER VACCINE 00:00:00 [facility] SARS-COV-2 COVID-19 2021-05-21 Completed Unive rsity of PFIZER VACCINE 00:00:00 [facility] SARS-COV-2 COVID-19 2021-05-21 Completed Unive rsity of PFIZER VACCINE 00:00:00 [facility] SARS-COV-2 COVID-19 2021-05-21 Completed Unive rsity of PFIZER VACCINE 00:00:00 [facility] SARS-COV-2 COVID-19 2021-05-21 Completed Unive rsity of PFIZER VACCINE 00:00:00 [facility] SARS-COV-2 COVID-19 2021-05-21 Completed Unive rsity of PFIZER VACCINE 00:00:00 [facility] SARS-COV-2 COVID-19 2021-05-21 Completed Unive rsity of PFIZER VACCINE 00:00:00 [facility] SARS-COV-2 COVID-19 2021-05-21 Completed Unive rsity of PFIZER VACCINE 00:00:00 [facility] SARS-COV-2 COVID-19 2021-05-21 Completed Unive rsity of PFIZER VACCINE 00:00:00 [facility] SARS-COV-2 COVID-19 2021-05-21 Completed Unive rsity of PFIZER VACCINE 00:00:00 [facility] SARS-COV-2 COVID-19 2021-05-21 Completed Unive rsity of PFIZER VACCINE 00:00:00 [facility] SARS-COV-2 COVID-19 2021-05-21 Completed Unive rsity of PFIZER VACCINE 00:00:00 [facility] SARS-COV-2 COVID-19 2021-05-21 Completed Unive rsity of PFIZER VACCINE 00:00:00 [facility] SARS-COV-2 COVID-19 2021-05-21 Completed Unive rsity of PFIZER VACCINE 00:00:00 [facility] SARS-COV-2 COVID-19 2021-05-21 Completed Unive rsity of PFIZER VACCINE 00:00:00 [facility] SARS-COV-2 COVID-19 2021-05-21 Completed Unive rsity of PFIZER VACCINE 00:00:00 [facility] Vital Signs Vital Name Observation Time Observation Value Comments Source Systolic blood 2023-07-07 13:32:00 106 mm[Hg] Univer sity of pressure [facility] Diastolic blood 2023-07-07 13:32:00 73 mm[Hg] Unive rsity of pressure [facility] Heart rate 2023-07-07 13:32:00 83 /min [facility] Oxygen saturation in 2023-07-07 13:32:00 96 /min [facility] Arterial blood by [facility] Pulse oximetry [place] Body temperature 2023-07-07 13:31:[address] [facility] Respiratory rate 2023-07-07 13:31:00 16 /min [facility] Body height 2023-07-07 13:31:00 152.4 cm [facility] Body weight 2023-07-07 13:31:00 89.359 kg [facility] BMI 2023-07-07 13:31:00 38.47 kg/m2 [facility] Systolic blood 2023-06-23 15:36:00 119 mm[Hg] Univer sity of pressure [facility] Diastolic blood 2023-06-23 15:36:00 85 mm[Hg] Unive rsity of pressure [place] [facility] Heart rate 2023-06-23 15:36:00 107 /min Universi ty of [place] [facility] Respiratory rate 2023-06-23 15:36:00 18 /min Univ ersity of [place] [facility] Body height 2023-06-23 15:36:00 152.4 cm Universi ty [facility] [place] [facility] Body weight 2023-06-23 15:36:00 89.449 kg [facility] ty [facility] [place] [facility] BMI 2023-06-23 15:36:00 38.51 kg/m2 [facility] ty [facility] Oxygen saturation in 2023-06-23 15:36:00 98 /min University of Arterial blood by [place] [facility] Pulse oximetry Branch Systolic blood 2023-06-14 18:58:00 113 mm[Hg] Univer sity of pressure [facility] Diastolic blood 2023-06-14 18:58:00 66 mm[Hg] Unive rsity of pressure [facility] Heart rate 2023-06-14 18:58:00 88 /min [facility]i ty [facility] [place] [facility] Body temperature 2023-06-14 18:33:00 36.39 Elizabeth Univ ersity of [place] [facility] Respiratory rate 2023-06-14 18:33:00 16 /min Univ ersity of [place] [facility] Body height 2023-06-14 18:33:00 152.4 cm Universi ty [facility] [place] [facility] Body weight 2023-06-14 18:33:00 89.177 kg [facility] [place] [facility] BMI 2023-06-14 18:33:00 38.40 kg/m2 [facility] [place] [facility] Oxygen saturation in 2023-06-14 18:33:00 99 /min University of Arterial blood by [place] [facility] Pulse oximetry Branch Systolic blood 2023-06-06 15:30:00 111 mm[Hg] Univer sity of pressure [facility] Diastolic blood 2023-06-06 15:30:00 70 mm[Hg] Unive rsity of pressure [place] [facility] Heart rate 2023-06-06 15:30:00 102 /min Universi ty [facility] [place] [facility] Body height 2023-06-06 15:30:00 165.1 cm [facility] ty [facility] [place] [facility] Body weight 2023-06-06 15:30:00 89.449 kg [facility] ty [facility] [place] [facility] BMI 2023-06-06 15:30:00 32.82 kg/m2 Universi ty of [facility] Oxygen saturation in 2023-06-06 15:30:00 96 /min University Arterial blood by [facility] Pulse oximetry [place] Body temperature 2023-06-06 15:22:00 36.44 Elizabeth Univ ersity of [facility] Body height 2023-03-28 20:42:00 152.4 cm Universi ty of [facility] Body weight 2023-03-28 20:42:00 89.812 kg Universi ty of [facility] BMI 2023-03-28 20:42:00 38.67 kg/m2 Universi ty of [facility] Systolic blood 2023-02-20 18:57:00 116 mm[Hg] Univer sity of pressure [facility] Diastolic blood 2023-02-20 18:57:00 70 mm[Hg] Unive rsity of pressure [facility] Heart rate 2023-02-20 18:57:00 101 /min Universi ty of [facility] Body height 2023-02-20 18:57:00 12.7 cm Universi ty of [facility] Body weight 2023-02-20 18:57:00 89.948 kg Universi ty of [facility] BMI 2023-02-20 18:57:00 5576.81 kg/m2 Univers ity of [facility] Body height 2023-02-16 19:34:00 152.4 cm Universi ty of [facility] Body weight 2023-02-16 19:34:00 86.183 kg Universi ty of [facility] BMI 2023-02-16 19:34:00 37.11 kg/m2 Universi ty of [facility] Body height 2023-02-08 20:10:00 152.4 cm Universi ty of [facility] Body weight 2023-02-08 20:10:00 86.183 kg Universi ty of [facility] BMI 2023-02-08 20:10:00 37.11 kg/m2 Universi ty of [facility] Procedures Procedure Date / Time Performing Clinician Source Performed CT HEAD WO CONTRAST 2023-07-03 12:54:00 Etelvina Song Universi ty [facility] TRANSTHORACIC ECHO (TTE) 2023-06-23 19:00:00 Nayely Bloom [facility] W/ CONTRAST Medical [facility] VACCINATION OF A MINOR 2023-06-06 14:48:57 Doctor Unassigned, No [facility] SEDIMENTATION RATE 2023-02-08 21:01:00 Jason Briones [facility] CONSENT/REFUSAL FOR 2023-02-08 19:55:49 Doctor Unassigned, No [facility] TREATMENT [facility] ASSIGNMENT OF BENEFITS 2023-02-08 19:55:34 Doctor Unassigned, No [facility] SARS-COV-2 COVID-19 2021-05-21 19:12:42 Flaquito Singh [facility] [place] VACCINE,0.3ML,IM [facility] (PFIZER) Encounters Start End Encounter Admission Attending Care Care Encounter Source Date/Time Date/Time Type Type Clinicians Facility Department ID 2023-04-[address] [facility] [id number] Common 08:57:01 Tania [id number] [facility] 2023-01-26 [facility] [id number] Common 10:29:03 Tania [id number] [facility] 2023-07-31 2023-07-31 Outpatient R JUSTIN ROMERO [facility] B [id number] Univers 10:30:00 10:30:00 JUSTIN ROMERO [facility] 2023-07-07 2023-07-07 Outpatient R HIEN [facility] [id number] Univers 08:30:00 09:31:18 CANDI lynch o f [facility] 2023-07-07 2023-07-07 Office [facility] [id number] [facility] 08:30:00 09:31:18 Visit Candi MORENO 350.1.13.10 i ty of WOMEN'S 4.2.7.2.686 [facility] [id number] [facility] 059 Branch 2023-07-05 2023-07-05 Outpatient R JUSTIN ROMERO [facility] B [id number] Univers 10:30:00 10:30:00 JUSTIN ROMERO itloree [facility] 2023-07-04 2023-07-04 Telephone [facility]jesus [facility] [id number] Univers 00:00:00 00:00:00 Nayely Nina HEALTH 350.1.13.10 it [place] [id number] [facility] 059 Branch OFFICE BUILDING 2023-07-03 2023-07-03 [facility] [id number] Univers 07:45:12 23:59:00 ETELVINA lynch [facility] 2023-07-03 2023-07-03 [facility] [id number] Univers 07:45:12 23:59:00 Encounter Etelvina JOSE MIGUELLIOR 350.1.13.10 ity [facility] 4.2.7.2.686 [facility] [id number] [place] [id number] Branch 2023-06-27 2023-06-27 Outpatient R [facility] [id number] Univers 00:00:00 00:00:00 ETELVINA lynch [facility] 2023-06-26 2023-06-26 Telephone [facility] [id number] Univers 00:00:00 00:00:00 Social & Loyal 350.1.13.10 it y of [place] 4.2.7.2.686 Mark as NIDA?BLEA [id number] Az ryroldan RUSTYGEOVANNY 2 [place] MEDICAL OFFICE BUILDING 2023-06-23 2023-06-23 Outpatient R [facility] [id number] Univers 12:46:20 23:59:00 NAYELY itloree [facility] 2023-06-23 2023-06-23 [facility] [id number] Univers 12:46:20 23:59:00 Encounter Nayely Nina JOSE MGIUELTON 350.1.13.10 ity [facility] 4.2.7.2.686 [facility] [id number] [facility] 850 [place] 2023-06-23 2023-06-23 Office [facility] [id number] Univers 10:30:00 10:57:52 Visit Etelvina [facility] 350.1.13.10 it y of [place] 4.2.7.2.686 Mark as NIDA?BLEA [id number] Az dicla ROCIO 092 [facility] 2023-06-14 2023-06-14 Outpatient R TOSHA [facility] [id number] Univers 13:40:00 14:23:59 NAYELY [facility] 2023-06-14 2023-06-14 Office [facility] [id number] Univers 13:40:00 14:23:[address] [facility] 350.1.13.10 [place] [id number] [facility] 059 [facility] 2023-06-07 2023-06-07 Telephone Carl RUST [id number] Univers 00:00:00 00:00:00 Noemy GARCIA 350.1.13.10 i ty of [facility] 4.2.[place].2.[place] [id number] Az david COELLO 044 [facility] 2023-06-06 2023-06-06 [employer] Technician 2, Adc Lab [place]UST 1.2.840.114 [id number] Univers 11:30:00 11:45:00 Visit Loco Quintero 350.1.13.1 0 ity of [place] 4.2.[place].2.[place] [id number] Az dical NAL 353 [facility] 2023-06-06 2023-06-06 Outpatient R LOCO QUINTERO [facility] [id number] Univers 10:00:00 11:19:19 LOCO [facility]O [facility] 2023-06-06 2023-06-06 Office Noemy Henry RUST 1.2.840.1 [id number] Univers 10:00:00 11:19:19 Visit Omari-Loco Villalba BRYANT 350.1.13.1 0 ity of [facility] 4.2.7.2.[place] [id number] Me dical NAL 044 [facility] 2023-06-06 2023-06-06 Orders Doctor YSABEL [id number] [id number] Univers 00:00:00 00:00:00 Only Unassigned, RAMIN 350.1.13.10 ity of [place] [facility] 4.2.7.2.686 Mark as [id number] [address] 2023-03-28 2023-03-28 Outpatient R RICH [facility] [id number] Univers 15:45:00 23:59:00 [facility] 2023-03-28 2023-03-28 Office [facility] 1.2.840.114 [id number] Univers 16:15:00 16:30:00 Visit [facility] 350.1.13.10 it y of [place] 4.2.7.2.686 Mark as NIDA?BLEA [id number] Az dicroldan ROCIO 198 [facility] OFFICE [facility] 2023-02-20 2023-02-20 Office [facility] 1.2.840.114 [id number] Univers 14:15:00 14:30:00 Visit [facility] 350.1.13.10 it [facility] 4.2.7.2.686 Mark as NIDA?BLEA [id number] Az dical RUSTYGEOVANNY 198 [facility] OFFICE [facility] 2023-02-20 2023-02-20 Outpatient R RICH [facility] [id number] Univers 14:15:00 14:15:00 [facility] 2023-02-16 2023-02-16 Office [facility] 1.2.840.114 [id number] Univers 14:45:00 15:00:00 Visit [facility] 350.1.13.10 it y of [place] 4.2.7.2.686 Mark as NIDA?BLEA [id number] Az david CHAN 198 [facility] OFFICE [facility] 2023-02-16 2023-02-16 Outpatient R RICH [facility] [id number] Univers 14:45:00 14:45:00 GLEN ity [facility] 2023-02-10 2023-02-10 Telephone Gavin RUST 1.2.840.114 [id number] Univers 00:00:00 00:00:[address] [facility] 350.1.13.10 it y of [place] 4.2.7.2.686 Mark as NIDA?BLEA [id number] Az david CHAN 198 [facility] OFFICE [facility] 2023-02-08 2023-02-08 [employer] Techn[employer] Lab, Ang - Db RUST 1.2.840.1 14 [id number] Univers 16:00:00 16:15:00 Visit Jason Briones [facility] 350.1.13.10 ity of [facility] 4.2.7.2.686 Mark as NIDA?BLEA [id number] Az david CHAN 353 [facility] OFFICE [facility] 2023-02-08 2023-02-08 Office [facility] [id number] Univers 15:30:00 15:53:25 Visit Jason Nina [facility] 350.1.13.10 it y of [place] 4.2.7.2.686 Mark as NIDA?BLEA [id number] Az david CHAN 198 [facility] OFFICE [facility] 2023-02-08 2023-02-08 Outpatient R [facility] [id number] Univers 15:30:00 15:53:25 JASON cris [facility] 2023-02-08 2023-02-08 Orders Doctor GRADY 1.2.840.114 [id number] Univers 00:00:00 00:00:00 Only Unassigned, RAMIN 350.1.13.10 ity of [place] [facility] 4.2.7.2.686 Mark as [id number] [address] 2021-06-11 2021-06-11 Outpatient R [facility] [id number] Univers 09:10:00 09:10:00 [id number] cris [facility] 2021-06-11 2021-06-11 Outpatient R CHICHIDIANDRA [facility] [id number] Univers 09:10:00 09:10:00 IPS, ity of [facility] 2021-05-21 2021-05-21 Outpatient R SAMANTHA [facility] [id number] Univers 11:40:00 11:40:00 CLEAVON itloree [facility] 2021-05-21 2021-05-21 Imm/Inj Vaccine, [facility] [place] 1.2.840.114 [id number] [facility] 11:04:45 11:14:45 Visit Flaquito Singh SPECIAL TY 350.1.13.10 ity [facility] 4.2.7.2.686 Chuckie greenberg COLONY [id number] [place] [address] Branch Results Test Description Test Time Test Comments Results Result Comments Source Transthoracic echo (TTE) 2023-06-24 01:22:06 Test Item Value Reference Range Interpretation Comme nts Height (test code = 4457435112) 60 in Weight (test code = 2775930904) 197 lbs Systolic BP (test code = 5046217418) 119 mmHg Diastolic BP (test code = 3474064143) 85 mmHg Heart Rate (test code = 4833465725) 110 bpm BSA (test code = 6946048499) 1.85 m2 LVOT diameter (test code = 3650107796) 2.12 cm LVOT area (test code = 6019260122) 3.50 cm2 Ao root diam (test code = 3511883326) 3.40 cm Aortic root (test code = 3395639915) 3.4 cm Ao root annulus (test code = 3.4 cm 4478687181) LA size (test code = 4947746625) 3.1 cm MV Peak E Grazyna (test code = 5809438364) 65.5 cm/s MV Peak A Grazyna (test code = 7112209739) 97.5 cm/s E/A ratio (test code = 3358228183) 0.67 ratio E wave decelartion time (test code = 0.12 s 8407126757) MV Prop V (test code = 6537946841) 24.80 cm/s LAV(MOD-sp4) (test code = 5397430656) 21.90 mL Tapse (test code = 1319549979) 1.47 cm LVOT stroke volume (test code = 55.40 cm3 4165480382) LVOT peak grazyna (test code = 0075856031) 104.3 cm/s LVOT mn grad (test code = 7493084774) 1.9 mmHg AV LVOT peak gradient (test code = 4.4 mmHg 3736654347) LVOT peak VTI (test code = 1411179056) 15.8 cm LV V1 mean (test code = 9956086462) 63.10 cm/s Ao peak grazyna (test code = 3417311972) 94.5 cm/s AV area peak grazyna (test code = 3.9 cm2 8554802501) Ao max PG (test code = 1776380908) 3.60 mm[Hg] AV peak gradient (test code = 3.6 mmHg 2461571244) LA Volume Index (BP) (test code = 12.1 mL/m2 3524485145) LA volume (BP) (test code = 22.3 mL 2134873919) LAV(MOD-sp2) (test code = 6541669680) 20.60 mL LVIDD (test code = 6657038843) 4.00 cm Left Ventricular End Diastolic Volume 69.4 mL by Teichholz Method (test code = 4452224) IVS (test code = 5644669471) 0.99 cm Interventricular Septum Diastolic 0.99 cm Thickness by 2D (test code = 8985954) LVPWD (test code = 2949106473) 0.88 cm PW (test code = 4403461200) 0.88 cm 0.6-1.1 EF(Teich) (test code = 9678081243) 51.70 % LVIDS (test code = 5403122447) 2.90 cm Left Ventricular End Systolic Volume 33.5 mL by Teichholz Method (test code = 0150847) FS (test code = 6798708820) 26 % EF - 2D (test code = 28989920) 51.70 % Radiology Study observation (narrative) (test code = 11041-9) LINWOOD (test code = LINWOOD) ?Left?Ventricle: Left ventricle size is normal. Normal wall thickness. Normal wall motion. Normal systolic function with a visually estimated EF of 55 - 60%. Normal diastolic function. ?Tricuspid?Valve: Trace transvalvular regurgitation. Insufficient tricuspid regurgitation jet to estimate RVSP . ?RA pressure is 0-5 mmHg. ?Mitral?Valve: Small mobile echogenic mass between the posterior leaflet and atrial wall. Possible artifact. Seen only subcoastal images. Recommend CT or MRI for further assessment. Left VentricleLeft ventricle size is normal. Normal wall thickness. Normal wall motion. Normal systolic function with a visually estimated EF of 55 - 60%. Normal diastolic function.Right VentricleRight ventricle size is normal. Normal systolic function.Left AtriumLeft atrium size is normal.Right AtriumRight atrium size is normal.IVC/SVCRA pressure is 0-5 mmHg.Mitral ValveMitral valve structure is grossly normal. Trace transvalvular regurgitation. Small mobile echogenic mass between the posterior leaflet and atrial wall. Possible artifact. Seen only subcoastal images. Recommend CT or MRI for further assessment.Tricuspid ValveTricuspid valve structure is grossly normal. Trace transvalvular regurgitation. Insufficient tricuspid regurgitation jet to estimate RVSP . RA pressure is 0-5 mmHg.Aortic ValveAortic valve opens well.Pulmonic ValveNot well visualized.Ascending AortaNormal sized aortic root.PericardiumNo pericardial effusion.Study DetailsA complete echocardiogram was performed using 2D, color flow Doppler and spectral Doppler. 5 mL of Lumason ultrasound enhancing agent used. [facility] [id number] 04:32:03 Test Item Value Reference Range Interpretation Comments ESR (test code = 33663-0) 17 See_Comment [ Automated message] The system Aiming generated this result transmitted ref erence range: 0 - 20 m m/HR. The reference r you was not used to interpret this result as normal/abnor mal. Lab Interpretation (test Normal code = 13352-9) [facility] [id number] 04:32:03 Test Item Value Reference Range Interpretation Comments ESR (test code = 87032-3) 17 See_Comment [ Automated message] The system Aiming generated this result transmitted ref erence range: 0 - 20 m m/HR. The reference r you was not used to interpret this result as normal/abnor mal. Lab Interpretation (test Normal code = 90702-7) [facility] History and Physical Notes Date/Time Note Provider Source 2023-06-07 13:04:44-00:00 Formatting of this note is d ifferent from the original. [facility] Lab Result/New Medications Chronic iron deficiency anemia - ferrous sulfate (IRON) 325 mg (65 mg iron) tablet; Take 1 tablet by mouth in the morning and 1 tablet at noon and 1 tablet in the evening. Take with meals. Dispense: 270 tablet; Refill: 1 - ascorbic acid, vitamin C, (VITAMIN C) 500 mg tablet; Take 1 tablet by mouth in the morning. Dispense: 90 tablet; Refill: 1 - IRON PANEL; Future Noemy Henry MD, MPH Architectural Design Professor, Department of Family Medici Formerly [facility]- [facility] 06/07/2023 1:07 PM Future Appointments In 3 months Devin Henry MD [facility], [facility] Angle Notes Date/Time Note Provider Source 2023-07-04 Formatting of this note might be differe nt from the original. Ashwini Smith RN [facility] 14:36:44-00:00 Called and spoke with pt dis cussed results. Pt verbalized understanding. 2023-07-04 Formatting of this note might be differe nt from the original. Mindy Barnes [facility] 11:21:46-00:00 Etelvina Soares is a 37 year old femalet returning missed call. Pls advise, thanks. Electronically signed by Mindy Barnes at 0 07/04/2023 11:22 AM CDT 2023-07-04 Formatting of this note is different from the or iginal. [facility] 10:10:49-00:00 DONAVON Warren 06/26/2023 10:13 AM CDT Back to Top Results of ECHO: Normal pumping and relaxation of heart. Mitral Valve: Small mobile e chogenic mass between the posterior leaflet and atrial wall. Possible artifact. Recommend to follow up with [facility] for further testing/ assessment. Attempted to call pt. No answer VM left for pt t o return call to clinic. T 2023-06-26 Formatting of this note might be differe nt from the original. Elly Rider [facility] 16:21:54-00:00 Sent pt Mychart message updating her of the [place] to Aimovig. Electronically signed by Elly Rider LVN a t 06/26/2023 4:22 PM T 2023-06-26 Addended by: ETELVINA HOROWITZ on: 06/26/2023 0 3:50 PM [facility] 15:50:33-00:00 Modules accepted: Orders T 2023-06-26 Formatting of this note might be differe nt from the original. Fredrick Morrell [facility] 11:33:03-00:00 David, The prior authorization has been denied for the following medication: Drug: Qulipta Insurance: [employer] Medicare PA#: [id number] Reason: Non-Formulary, Qulip ta is not covered on the patient's formulary. Alternatives listed as Aimovig, Ajovy, Emgality, Nurtec. Each alternative will requir e a prior authorization and records showing previously tried therapies. Thank you Electronically signed by Fredrick Morrell at 3 11:40 AM T 2023-06-08 Formatting of this note is different fro m the original. Rosalinda Purvis [facility] 17:46:43-00:00 Images from the original note were not included. Your lab results are back and they are relative ly normal except noted - Abnormal Iron panel. Iron therapy sent to the pharmacy with Vit C - CHOL slightly elevated at 215. Goal < 200 Continue the plans we discus sed at your visit, including medication compliance, lifestyle and diet modification: lean meat, low fat, vegetables, nuts, low carb, increased fruits and exercise as tolerate d. Maintain good hydration and avoid highly proc essed foods. Complete future/pending labs prior next appointment. I have included copies of the tests for your files. I will see you at your next appointment. Thanks. Sincerely, Noemy Henry MD, MPH Architectural Design Professor, Department of Family Medici ne [facility] Written by Noemy Henry MD on 06/07/2023 1:07 PM CDT Seen by patient Etelvina Soares on 06/07/2023 1:37 PM Patient is aware of the new medications as they MyChart message was viewed including the same information. Rosalinda Purvis LVN 06/08/2023 5:47 PM 2023-06-06 Formatting of this note is different from the or iginal. [facility] 11:30:00-00:00 Images from the original note were not included. Venipuncture collection perf ormed by clean technique on the left anticubitus. Total of 1 attempts were made. Slight pressure and a bandage/dressing were applied to the site(s). The patient experienced n o complications. The followi ng specimens were processed according to instructions and sent to [facility] per lab order on 06/06/2023 : LT BLUE SST 2 RED LAV 2 PPT DK GREEN (LiHep) DK GREEN (SodH) YEE DK BLUE (K2) DK BLUE (S) ACD Blood Culture NIPT/NTD Patient has been identified by and name and was provided with cup, antiseptic towelette, and clean catch instructions. 1 urine specimen(s) sent. Unpreserved 1 Urine Culture Aptima tube Other urine Electronically signed by Grisel Graves at 11:32 AM CDT
--- NOTE | 2023-07-18 14:53 | RAD REPORT ---
EXAM DESCRIPTION: US - Extremity Venous Uni Ltd - 07/18/2023 12:52 pm CLINICAL HISTORY: Numbness, tingling COMPARISON: None. TECHNIQUE: Real-time sonographic evaluation of the left lower extremity deep venous system was perfo rmed. FINDINGS: Normal compressibility, flow augmentation, phasic flow and spontaneous flow is identified in the left lower extremity deep venous system. No intraluminal filling defects seen. IMPRESSION: No DVT in the left lower extremity.
--- NOTE | 2023-07-18 14:56 | ER ---
Nurse's Notes [facility] Name: Etelvina Whelan Age: 37 yrs Sex: Female : 1985 Arrival Date: 07/18/2023 Time: 11:27 Bed 11 Private MD: Diagnosis: Pain in left leg Presentation: 07/18 11:38 Chief complaint: Patient states: she started having a numb feeling in an area on the ap3 outside of her left leg approx 2.5 weeks ago. Coronavirus screen: At this time, the client does not indicate any symptoms associated with coronavirus-19. Ebola Screen: No symptoms or risks identified at this time. Initial Sepsis Screen: Does the patient meet any 2 criteria? No. Patient's initial sepsis screen is negative. Does the patient have a suspected source of infection? No. Patient's initial sepsis screen is negative. Risk Assessment: Do you want to hurt yourself or someone else? Patient reports no desire to harm self or others. Onset of symptoms is unknown. 11:38 Method Of Arrival: Ambulatory ap3 11:38 Acuity: KSENIA 3 ap3 Triage Assessment: 11:41 General: Appears in no apparent distress. Behavior is calm, cooperative, appropriate ap3 for age. Pain: Denies pain. Neuro: Reports numbness in lateral aspect of left thigh. Cardiovascular: Patient's skin is warm and dry. Respiratory: Airway is patent Respiratory effort is even, unlabored, Respiratory pattern is regular, symmetrical. Historical: - Allergies: 11:38 EGG/POULTRY; ap3 - Home Meds: 11:38 [place] Carbonate Oral [Active]; Seroquel Oral [Active]; levothyroxine oral [Active]; ap3 - PMHx: 11:38 Bipolar disorder; Migraines; Schizophrenia; Supraventricular Tachacardia; ap3 - PSHx: 11:38 section; Cholecystectomy; Ligation of fallopian tube; ap3 - Immunization history:: Client reports receiving the 2nd dose of the Covid vaccine. - Social history:: Smoking status: Reported history of juuling and/or vaping. Screenin:42 [facility] ED Fall Risk Assessment (Adult) History of falling in the last 3 months, ap3 including since admission No falls in past 3 months (0 pts). Abuse screen: Denies threats or abuse. Nutritional screening: No deficits noted. Tuberculosis screening: No symptoms or risk factors identified. Assessment: 11:55 Reassessment: See triage assessment. nj1 13:00 Reassessment: Patient appears in no apparent distress at this time. Patient and/or nj1 family updated on plan of care and expected duration. Pain level reassessed. Patient is alert, oriented x 3, equal unlabored respirations, skin warm/dry/pink. 13:54 Reassessment: Patient appears in no apparent distress at this time. Patient and/or nj1 family updated on plan of care and expected duration. Pain level reassessed. Patient is alert, oriented x 3, equal unlabored respirations, skin warm/dry/pink. 15:10 Reassessment: ERP at bedside discussing results and POC. jl7 15:15 Reassessment: Pt left without signing paperwork, verbal instructions provided by ERP. jl7 Vital Signs: 11:38 BP 135 / 80; Pulse 95; Resp 18; Temp 98.4; Pulse Ox 100% ; Weight 90.72 kg; ap3 13:54 BP 105 / 74; Pulse 96; Resp 18; Pulse Ox 99% on R/A; Pain 7/10; nj1 13:54 Pain Scale: Adult mn1 ED Course: 11:31 Patient arrived in ED. mg5 11:31 [facility] Frey [facility]C [facility]. kb 11:31 Kedar Scherer MD is Attending Physician. kb 11:34 Ely Costello, KHARI is Primary Nurse. nj1 11:38 Triage completed. ap3 11:42 Arm band placed on right wrist. ap3 11:42 Patient has correct armband on for positive identification. Bed in low position. Call ap3 light in reach. Side rails up X 1. Pulse ox on. NIBP on. 12:53 US Extremity Venous Unilateral Ltd In Process Unspecified. EDMS 13:00 Provided Education on: fall precautions, call light. nj1 15:15 No provider procedures requiring assistance completed. Patient did not have IV access jl7 during this emergency room visit. Administered Medications: 14:46 Drug: Ibuprofen PO 600 mg Route: PO; nj1 Medication: 15:15 VIS not applicable for this client. jl7 Outcome: 14:55 Discharge ordered by . kb 15:15 Discharged to home ambulatory. jl7 15:15 Condition: stable 15:15 Discharge instructions given to patient, Instructed on discharge instructions, follow up and referral plans. Demonstrated understanding of instructions, follow-up care. 15:24 Patient left the ED. jl7 Signatures: Dispatcher [employer] Tierra Medrano, ARNOLD KEMPP-Shar Dominguez RN RN jl7 Thi Lucia RN RN ap3 Ely Costello RN RN nj1 Eva Velez [facility] [place]
--- NOTE | 2023-07-18 14:56 | EDPHYS ---
Physician Documentation [facility] Name: Etelvina Whelan Age: 37 yrs Sex: Female : 1985 Arrival Date: 07/18/2023 Time: 11:27 Bed 11 Private MD: ED Physician Kedar Scherer HPI: 07/18 12:54 This 37 yrs old Female presents to ER via Ambulatory with complaints of Leg Pain - Left.kb 12:54 The patient presents with numbness and tingling to lateral left thigh only. Denies kb pain, fever, erythema. States it started 2.5 weeks ago. The complaints affect the lateral aspect of left thigh. Context: resulted from an unknown cause, the patient can fully bear weight, the patient is able to ambulate. Onset: The symptoms/episode began/occurred 2.5 week(s) ago. Modifying factors: The symptoms are alleviated by nothing. the symptoms are aggravated by nothing. Associated signs and symptoms: Pertinent positives: numbness, tingling, Pertinent negatives calf tenderness, fever, nausea, rash, swelling, vomiting, warmth, weakness. Treatment prior to arrival includes: no previous treatment. Severity of symptoms: At their worst the symptoms were mild, moderate, in the emergency department the symptoms are unchanged. The patient has not experienced similar symptoms in the past. The patient has been recently seen at an urgent care, today, for similar complaints, sent to ED for US. Historical: - Allergies: 11:38 EGG/POULTRY; ap3 - Home Meds: 11:38 [place] Carbonate Oral [Active]; Seroquel Oral [Active]; levothyroxine oral [Active]; ap3 - PMHx: 11:38 Bipolar disorder; Migraines; Schizophrenia; Supraventricular Tachacardia; ap3 - PSHx: 11:38 section; Cholecystectomy; Ligation of fallopian tube; ap3 - Immunization history:: Client reports receiving the 2nd dose of the Covid vaccine. - Social history:: Smoking status: Reported history of juuling and/or vaping. ROS: 12:53 Constitutional: Negative for fever, chills, and weight loss. kb 12:53 MS/extremity: Positive for paresthesias, tingling, of the lateral aspect of left thigh. 12:53 All other systems are negative. Exam: 12:53 Constitutional: This is a well developed, well nourished patient who is awake, alert, kb and in no acute distress. Head/Face: Normocephalic, atraumatic. ENT: Moist Mucous membranes Cardiovascular: Regular rate Respiratory: Respirations even and unlabored. No increased work of breathing. Talking in full sentences Abdomen/GI: Soft, non-tender. No distention Skin: Warm, dry with normal turgor. Normal color. MS/ Extremity: Pulses equal, no cyanosis. Neurovascular intact. Full, normal range of motion. Neuro: Awake and alert, GCS 15, oriented to person, place, time, and situation. Moves all extremities. Normal gait. Vital Signs: 11:38 BP 135 / 80; Pulse 95; Resp 18; Temp 98.4; Pulse Ox 100% ; Weight 90.72 kg; ap3 13:54 BP 105 / 74; Pulse 96; Resp 18; Pulse Ox 99% on R/A; Pain 7/10; nj1 13:54 Pain Scale: Adult nj1 MDM: 11:35 Patient medically screened. kb 12:54 Differential diagnosis: contusion, tendonitis, dvt. Data reviewed: vital signs, nurses kb notes. Counseling: I had a detailed discussion with the patient and/or guardian regarding the historical points, exam findings, and any diagnostic results supporting the discharge/admit diagnosis, radiology results, the need for outpatient follow up, a family practitioner, to return to the emergency department if symptoms worsen or persist or if there are any questions or concerns that arise at home. 07/18 11:35 Order name: US Extremity Venous Unilateral Ltd; Complete Time: 14:54 kb Administered Medications: 14:46 Drug: Ibuprofen PO 600 mg Route: PO; nj1 Disposition Summary: 07/18/23 14:55 Discharge Ordered Location: Home kb Condition: Stable kb Diagnosis - Pain in left leg kb Followup: kb - With: Emergency Department - When: As needed - Reason: Worsening of condition Followup: kb - With: Private Physician - When: 2 - 3 days - Reason: Recheck today's complaints, Continuance of care, Re-evaluation by your physician Discharge Instructions: - Discharge Summary Sheet kb - Musculoskeletal Pain kb Forms: - Medication Reconciliation Form kb - Thank You Letter kb - Antibiotic Education kb - Prescription Opioid Use kb - Patient Portal Instructions kb - Leadership Thank You Letter kb Signatures: Dispatcher [employer] Tierra Medrano, FISHING HAND-C FISHING HAND-Thi Muro RN RN ap3 Ely Costello RN RN nj1 Corrections: (The following items were deleted from the chart) 12:57 12:54 The patient has not recently seen a physician, kb kb
[2023-07-18] MEDS ORDERED: IBUPROFEN 200 MG TAB PO ONE (14:57)
[2023-07-18] MEDS ORDERED: IBUPROFEN 400 MG TAB ONE (14:57)
[2023-07-18 15:28] VITALS: TEMP 98.4
[2023-07-18 15:30] VITALS: BP 105/74; O2SAT 99
== END 2023-07-18 15:24 | disposition home or self-care (01) ==
LOC: ER 11:27
DX: M79.605 Pain in left leg (principal); F20.9 Schizophrenia, unspecified; Z91.012 Allergy to eggs
CPT/HCPCS: 93971; 99283